=== PATIENT | female | born 1965 | race Caucasian/White ===

== ENCOUNTER → 2016-12-09 | Outpatient (CLI) | payer OTHER ==
[~2016-12-09] MED LIST: BACTRIM DS TAB1 EACH PO; CALCIUM +D & M1 EACH PO; CATAPRES-TTS 10.1 M2 TRANSDERM; CENTRUM SILVER1 EAC1 PO; CLONIDINE0.1 PO; COMBIVENT RESPIM4 GM IH; CYMBALTA; CYMBALTA60 MG PO; DEPAKOTE500 MG PO; DIFLUCAN200 MG PO; DIOVAN HCT 3201 EAC1 PO; DIOVAN160 MG PO; DIOVAN320 MG PO; DOXYCYCLINE 10100 MG PO; FLONASE 0.05%50 MCG NASAL; FOLIC ACID1 MG PO; HUMIRA40 MG/0.8 SQ; HUMIRA40 MG/0.8 SUBQ; HYDROCODON-ACE1 EAC1 PO; HYDROCODON-ACE1 EAC8 PO; HYZAAR 100-12.1 EACH PO; KEFLEX500 MG PO; LANTUS SC; LANTUS SUBQ; LEVEMIR SUBQ; LEXAPRO 10 MG T10 M1 PO; LEXAPRO20 MG PO; LIDODERM 5%1 PATC1 TOP; LIPITOR; LIPITOR80 MG PO; LOSARTAN-HCTZ1 EAC1 PO; METFORMIN; METFORMIN HCL500 M2 PO; METHOTREXATE 22.5 MG GT; METHOTREXATE 22.5 MG PO; MOBIC15 MG PO; NEURONTIN 300M300 M2 PO; NORCO 5-325 TA1 EACH PO; NORFLEX100 MG PO; NORTRIPTYLINE H10 M1 PO; NORVASC 5 MG TAB5 MG PO; NORVASC10 MG PO; NOVOLOG100 UNIT/1 SQ; NOVOLOG100 UNIT/1 SUBQ; PHENERGAN 25 MG25 M1 PO; PROTONIX40 M1 PO; SIMVASTATIN40 MG PO; SYMBICORT160 MCG/4. INH; TRAZODONE HCL50 MG PO; TRIAMTERENE-HC1 EAC1 PO; ULTRAM 50MG TAB50 MG PO; VISTARIL 25 MG25 M1 PO; VITAMIN D 5050000 I1 PO; VITAMIN D1000 UNI1 PO; VITAMIN D250000 UNIT PO; XANAX 0.25 MG0.25 MG PO
== END ==
LOC: CAT 12-07 11:03
DX: K80.80 Other cholelithiasis without obstruction (principal); R10.12 Left upper quadrant pain

== ENCOUNTER → 2016-12-21 | Outpatient (CLI) | payer OTHER | LOC: ULTRA 17:07 | DX: M79.661 Pain in right lower leg (principal) ==

== ENCOUNTER → 2017-01-27 | Outpatient (CLI) | payer OTHER | LOC: MRI 02:41 | DX: M21.832 Other specified acquired deformities of left forearm (principal); R26.0 Ataxic gait; R41.0 Disorientation, unspecified ==

== ENCOUNTER 2017-04-11 12:37 | Emergency (ER) | payer OTHER ==
[~2017-04-11] VITALS: Ht 177.8 cm; Wt 113.4 kg
[2017-04-11] MEDS ORDERED: BACTRIM DS TAB1 EACH PO (12:56)
[2017-04-11] MEDS ORDERED: HIBICLENS120 ML TP (12:56)
[2017-04-11] MEDS ORDERED: NORVASC5 MG PO (13:04)
[2017-04-11] MEDS ORDERED: NORTRIPTYLINE H10 M1 PO (13:05)
[2017-04-11] MEDS ORDERED: NORCO 5-325 TA1 EACH PO (13:10)
[2017-04-11 13:25] VITALS: BP 123/78
== END 2017-04-11 12:57 | disposition home or self-care (01) ==
LOC: ER 12:37
DX: L02.412 Cutaneous abscess of left axilla (principal); L02.811 Cutaneous abscess of head [any part, except face]; E11.40 Type 2 diabetes mellitus with diabetic neuropathy, unspecified; I10 Essential (primary) hypertension; E78.5 Hyperlipidemia, unspecified; M06.9 Rheumatoid arthritis, unspecified; Z79.4 Long term (current) use of insulin; F31.81 Bipolar II disorder; Z98.890 Other specified postprocedural states; Z88.8 Allergy status to other drugs, medicaments and biological substances

== ENCOUNTER 2017-04-23 16:44 | Emergency (ER) | payer OTHER ==
[~2017-04-23] VITALS: Ht 177.8 cm; Wt 111.1 kg
[~2017-04-23 16:44] MED LIST changes: +HIBICLENS120 ML TP; +NORVASC5 MG PO
[2017-04-23] MEDS ORDERED: IBUPROFEN 800800 M1 PO (19:17)
[2017-04-23 19:30] VITALS: BP 148/79
== END 2017-04-23 19:19 | disposition home or self-care (01) ==
LOC: ER 16:44
DX: S80.02XA Contusion of left knee, initial encounter (principal); S50.812A Abrasion of left forearm, initial encounter; E11.40 Type 2 diabetes mellitus with diabetic neuropathy, unspecified; I10 Essential (primary) hypertension; E78.5 Hyperlipidemia, unspecified; M06.9 Rheumatoid arthritis, unspecified; F31.9 Bipolar disorder, unspecified; K58.9 Irritable bowel syndrome, unspecified; Z90.89 Acquired absence of other organs; Z88.8 Allergy status to other drugs, medicaments and biological substances; Z79.4 Long term (current) use of insulin; W18.39XA Other fall on same level, initial encounter; Y93.89 Activity, other specified; Y92.89 Other specified places as the place of occurrence of the external cause; Y99.8 Other external cause status

== ENCOUNTER → 2017-10-19 | Outpatient (CLI) | payer OTHER ==
[~2017-10-19] MED LIST changes: +CARVEDILOL12.5 MG PO; +CIPROFLOXACIN500 M1 PO; +DIFLUCAN150 MG PO; +HYDROCODONE-AP1 EAC6 PO; +IBUPROFEN 800800 M1 PO; +LOSARTAN-HCTZ1 EAC3 PO; +ZOFRAN ODT4 MG PO
== END ==
LOC: RAD 15:47
DX: M25.561 Pain in right knee (principal); M25.562 Pain in left knee

== ENCOUNTER → 2017-11-27 | Outpatient (CLI) | payer OTHER | LOC: MRI 09:31 | DX: M25.572 Pain in left ankle and joints of left foot (principal); M79.89 Other specified soft tissue disorders ==

== ENCOUNTER 2017-12-28 12:55 | Emergency (ER) | payer OTHER ==
[~2017-12-28] VITALS: Ht 167.6 cm; Wt 99.8 kg
[~2017-12-28 12:55] MED LIST changes: -CARVEDILOL12.5 MG PO; -CIPROFLOXACIN500 M1 PO; -DIFLUCAN150 MG PO; -HYDROCODONE-AP1 EAC6 PO; -LOSARTAN-HCTZ1 EAC3 PO; -ZOFRAN ODT4 MG PO
[2017-12-28 13:16] LABS: URINE BILIRUBIN NEGATIVE (Negative); URINE BLOOD 1+ (Negative); URINE CLARITY CLEAR; URINE COLOR YELLOW; URINE GLUCOSE-RANDOM* 3+ (Negative); URINE KETONES 1+ (Negative); URINE LEUKOCYTES-REFLEX NEGATIVE (Negative); URINE PROTEIN (DIPSTICK) 2+ (Negative); URINE SPECIFIC GRAVITY 1.015 (1.005-1.035); URINE UROBILINOGEN 0.2 E.U./dl (0.2-1.0)
[2017-12-28 13:20] LABS: URINE NITRITE-REFLEX POSITIVE (Negative)
[2017-12-28 13:28] LABS: BACTERIA-REFLEX >30 Many /HPF (None Seen); HYALINE CASTS 0-3 Few /LPF (None Seen); SQUAMOUS 0-3 Few /LPF (0-3); URINE WBC-REFLEX 0-5 Rare /HPF (0-5)
[2017-12-28 13:29] LABS: CRYSTALS None Seen /LPF (None Seen); URINE RBC 0-2 Rare /HPF (0-2); WBC CLUMPS Few (None Seen)
[2017-12-28] MEDS ORDERED: CIPROFLOXACIN500 M1 PO (14:02)
[2017-12-28] MEDS ORDERED: ZOFRAN ODT4 MG PO (14:02)
[2017-12-28 14:24] VITALS: BP 195/101
== END 2017-12-28 14:28 | disposition home or self-care (01) ==
LOC: ER 12:55
PROVIDERS: Emergency Medicine
DX: N39.0 Urinary tract infection, site not specified (principal); I10 Essential (primary) hypertension; E78.5 Hyperlipidemia, unspecified; M19.90 Unspecified osteoarthritis, unspecified site; E11.9 Type 2 diabetes mellitus without complications; Z88.8 Allergy status to other drugs, medicaments and biological substances

== ENCOUNTER 2018-01-11 16:20 | Emergency (ER) | payer OTHER ==
[~2018-01-11] VITALS: Ht 177.8 cm; Wt 117.9 kg
[~2018-01-11 16:20] MED LIST changes: +CIPROFLOXACIN500 M1 PO; +ZOFRAN ODT4 MG PO
[2018-01-11] MEDS ORDERED: LOSARTAN-HCTZ1 EAC3 PO (16:58)
[2018-01-11] MEDS ORDERED: DOXYCYCLINE 10100 MG PO (18:28)
[2018-01-11] MEDS ORDERED: HYDROCODONE-AP1 EAC6 PO (18:28)
[2018-01-11] MEDS ORDERED: DIFLUCAN150 MG PO (18:28)
[2018-01-11 18:52] VITALS: BP 159/89
== END 2018-01-11 18:52 | disposition home or self-care (01) ==
LOC: ER 16:20
DX: L02.416 Cutaneous abscess of left lower limb (principal); B37.3 Candidiasis of vulva and vagina; I10 Essential (primary) hypertension; E78.5 Hyperlipidemia, unspecified; M19.90 Unspecified osteoarthritis, unspecified site; F31.9 Bipolar disorder, unspecified; E11.40 Type 2 diabetes mellitus with diabetic neuropathy, unspecified; Z88.8 Allergy status to other drugs, medicaments and biological substances

== ENCOUNTER 2018-01-26 15:59 | Emergency (ER) | payer OTHER ==
[~2018-01-26] VITALS: Ht 177.8 cm; Wt 108.0 kg
--- NOTE | ~2018-01-26 | EKG ---
[place] [address] [facility] [address] ELECTROCARDIOGRAM REPORT Name: MICHAEL VALLE Room #: REG [facility]#: [id number] Admission: 01/26/18 Attend Phys: Discharge: Date of : 65 Report #: [id number] THIS REPORT FOR: //name// [facility] ED Test Date: 2018-01-26 Test Time: 16:38:40 Pat Name: MICHAEL VALLE Department: Room: Gender: F Blood Splatter Analyst: : 1965 Requested By: Tico Horner Order Number: [id number] MD: Kevin Morrison Measurements Intervals [place] Rate: 94 P: 64 [place]: 161 QRS: 5 QRSD: 85 T: 62 QT: 352 QTc: 441 Interpretive Statements Sinus rhythm Abnormal R-wave progression, early transition Left ventricular hypertrophy Compared to ECG 02/23/2016 16:46:35 Left ventricular hypertrophy now present T-wave abnormality no longer present Possible ischemia no longer present Electronically Signed On 01-26-2018 18:18:55 CDT by Kevin Morrison [email or web address] <ELECTRONICALLY SIGNED> By: Kevin Morrison MD 01/26/18 1818 37 37 Kevin Morrison MD /EPI
[~2018-01-26 15:59] MED LIST changes: +DIFLUCAN150 MG PO; +HYDROCODONE-AP1 EAC6 PO; +LOSARTAN-HCTZ1 EAC3 PO
[2018-01-26 16:30] LABS: ABSOLUTE NEUTROPHILS 5.2 thou/uL (1.4-8.2); EOSINOPHILS 2.9 % (0.0-3.0); HEMATOCRIT 42.9 % (37.0-47.0); HEMOGLOBIN 14.6 gm/dL (12.0-15.0); LYMPHOCYTES 31.7 % (24.0-44.0); MCH 29.3 pg (26.0-34.0); MCHC 34.1 g/dL (28.0-37.0); MCV 85.9 fL (80.0-100.0); MONOCYTES 5.4 % (1.0-8.0); PLATELET COUNT 217 thou/uL (150-400); RDW 12.8 % (10.5-14.5); WBC 8.9 thou/uL (4.0-11.0)
[2018-01-26 16:46] LABS: ANION GAP 15 mmol/L (7-16); BUN 25 mg/dL (7-18); CALCIUM 9.5 mg/dL (8.5-10.1); CHLORIDE 90 mmol/L (98-107); CO2 22 mmol/L (21-32); CREATININE 1.3 mg/dL (0.6-1.0); POTASSIUM 4.6 mmol/L (3.5-5.1); SODIUM 127 mmol/L (136-145)
[2018-01-26 16:48] LABS: SGOT 13 U/L (15-37); SGPT 16 U/L (30-65); TOTAL BILIRUBIN 0.6 mg/dL (<0.1-1.0); TOTAL PROTEIN 7.8 g/dL (6.4-8.2); TROPONIN-I < 0.04 ng/mL (<0.06)
[2018-01-26 16:50] LABS: GLUCOSE 627 mg/dL (74-106)
[2018-01-26 18:07] LABS: URINE BILIRUBIN NEGATIVE (Negative); URINE BLOOD TRACE (Negative); URINE CLARITY CLEAR; URINE COLOR YELLOW; URINE GLUCOSE-RANDOM* 3+ (Negative); URINE KETONES 2+ (Negative); URINE LEUKOCYTES-REFLEX NEGATIVE (Negative); URINE NITRITE-REFLEX NEGATIVE (Negative); URINE PROTEIN (DIPSTICK) TRACE (Negative); URINE UROBILINOGEN 0.2 E.U./dl (0.2-1.0)
[2018-01-26 19:37] VITALS: BP 150/76
== END 2018-01-26 19:38 | disposition home or self-care (01) ==
LOC: ER 15:59
PROVIDERS: Physician Assistant
DX: E11.65 Type 2 diabetes mellitus with hyperglycemia (principal); M79.7 Fibromyalgia; E87.1 Hypo-osmolality and hyponatremia; I10 Essential (primary) hypertension; E78.5 Hyperlipidemia, unspecified; M19.90 Unspecified osteoarthritis, unspecified site; F31.9 Bipolar disorder, unspecified; E11.40 Type 2 diabetes mellitus with diabetic neuropathy, unspecified; Z88.8 Allergy status to other drugs, medicaments and biological substances

== ENCOUNTER → 2018-02-01 | Outpatient (CLI) | payer OTHER ==
[~2018-02-01] VITALS: Ht 177.8 cm; Wt 114.3 kg
[2018-02-01 14:14] VITALS: BP 186/97
[2018-02-01 16:29] LABS: ALBUMIN 2.8 g/dL (3.4-5.0); CALCIUM 9.1 mg/dL (8.5-10.1); CREATININE 0.8 mg/dL (0.6-1.0); POTASSIUM 4.1 mmol/L (3.5-5.1); TOTAL BILIRUBIN 0.3 mg/dL (<0.1-1.0); TOTAL PROTEIN 6.8 g/dL (6.4-8.2)
[2018-02-02 06:13] LABS: GLYCOHEMOGLOBIN (HGB A1C) 16.5 % (4.8-5.6)
== END ==
LOC: SEN 09:23
PROVIDERS: Nurse Practitioner Family
DX: E11.8 Type 2 diabetes mellitus with unspecified complications (principal); R29.818 Other symptoms and signs involving the nervous system; I10 Essential (primary) hypertension; E87.1 Hypo-osmolality and hyponatremia

== ENCOUNTER → 2018-02-08 | Outpatient (CLI) | payer OTHER ==
[2018-02-08 14:00] VITALS: BP 164/83
== END ==
LOC: SEN 07:41
DX: F31.9 Bipolar disorder, unspecified (principal); I10 Essential (primary) hypertension; E78.5 Hyperlipidemia, unspecified; E11.9 Type 2 diabetes mellitus without complications; Z88.8 Allergy status to other drugs, medicaments and biological substances

== ENCOUNTER → 2018-03-08 | Outpatient (CLI) | payer OTHER ==
[2018-03-08 13:36] VITALS: BP 157/70
== END ==
LOC: SEN 09:07
DX: E11.9 Type 2 diabetes mellitus without complications (principal); F41.9 Anxiety disorder, unspecified; E78.5 Hyperlipidemia, unspecified

== ENCOUNTER → 2018-06-06 | Outpatient (CLI) | payer OTHER ==
[~2018-06-06] MED LIST changes: +CARVEDILOL12.5 MG PO
--- NOTE | ~2018-06-06 | 2DMMODE ---
[facility] [place] [employer] [place] [address] 2 D/M-MODE ECHOCARDIOGRAM Name: MICHAEL VALLE Room #: REG CL [facility]#: [id number] Admission: 06/06/18 Attend Phys: Fadi Palomino, Discharge: Date of : 65 Date of Service: 06/06/18 1549 Report #: [id number] THIS REPORT FOR: //name// APPROVED REPORT Study performed: 06/06/2018 14:53:10 EXAM: Comprehensive 2D, Doppler, and color-flow Echocardiogram Patient Location: Out-Patient Status: routine BSA: 2.42 HR: 85 bpm BP: 205/105 mmHg Rhythm: NSR Other Information Study Quality: Adequate Technically limited study due to body habitus. Indications Dysnea on exertion. HX: DM, HTN, HLP 2D Dimensions RVDd: 38.08 mm IVSd: 11.73 (7-11mm) LVOT Diam: 21.30 (18-24mm) LVDd: 53.51 mm PWd: 9.64 (7-11mm) Ascending Ao: 38.26 (22-36mm) LVDs: 32.37 (25-40mm) Aortic Root: 35.95 mm Volumes Left Atrial Volume (Systole) Single Plane 4CH: 53.54 mL Single Plane 2CH: 52.75 mL Aortic Valve AoV Peak Harpreet.: 1.27 m/s AO Peak Gr.: 6.45 mmHg LVOT Max P.29 mmHg LVOT Max V: 1.04 m/s GORDON Vmax: 2.90 cm2 Mitral Valve E/A Ratio: 1.2 MV Decel. Time: 190.98 ms MV E Max Harpreet.: 1.07 m/s [facility] [address] [place] [address] 2 D/M-MODE ECHOCARDIOGRAM Name: MICHAEL VALLE Room #: REG [facility].#: [id number] Admission: 06/06/18 Attend Phys: Fadi Palomino, Discharge: Date of : 65 Date of Service: 06/06/18 1549 Report #: [id number] MV A Harpreet.: 0.91 m/s MV PHT: 55.38 ms IVRT: 73.82 ms Pulmonary Valve PV Peak Harpreet.: 1.12 m/s PV Peak Gr.: 5.03 mmHg Pulmonary Vein P Vein S: 0.56 m/s P Vein D: 0.44 m/s P Vein S/D Ratio: 1.27 Tricuspid Valve RAP Estimate: 5.00 mmHg Left Ventricle The left ventricle is normal size. There is normal LV segmental wall motion. Mild septal hypertrophy is present. Left ventricular systolic function is normal. LVEF is 65-70%. Grade II - pseudonormal filling dynamics. Right Ventricle The right ventricle is normal size. The right ventricular systolic function is normal. Atria The left atrium size is normal. The right atrium size is normal. Aortic Valve The aortic valve is normal in structure. No aortic regurgitation is present. There is no aortic valvular stenosis. Mitral Valve The mitral valve is normal in structure. There is no mitral valve regurgitation noted. No evidence of mitral valve stenosis. Tricuspid Valve The tricuspid valve is normal in structure. There is no tricuspid valve regurgitation noted. Unable to assess PA pressure. Pulmonic Valve The pulmonary valve is normal in structure. There is no pulmonic valvular regurgitation. [employer] [facility] [address] [place] [address] 2 D/M-MODE ECHOCARDIOGRAM Name: PADMINISINDYPRISCILAMICHAEL ANN Room #: REG [facility].#: [id number] Admission: 06/06/18 Attend Phys: Fadi Palomino, Discharge: Date of : 65 Date of Service: 06/06/18 1549 Report #: [id number] The aortic root is normal in size. The ascending aorta is normal in size. IVC is normal in size and collapses >50% with inspiration. Pericardium There is no pericardial effusion. <Conclusion> The left ventricle is normal size. LVEF is 65-70%. The aortic valve is normal in structure. The mitral valve is normal in structure. The tricuspid valve is normal in structure. There is no tricuspid valve regurgitation noted. Unable to assess PA pressure. The pulmonary valve is normal in structure. There is no pericardial effusion. <ELECTRONICALLY SIGNED> By: Will Munoz MD 06/06/18 1549 1549 1549 Will Munoz MD /INF
== END ==
LOC: CV 07:59
DX: R06.09 Other forms of dyspnea (principal); R60.0 Localized edema; I10 Essential (primary) hypertension; E11.9 Type 2 diabetes mellitus without complications; E78.5 Hyperlipidemia, unspecified

== ENCOUNTER → 2018-06-28 | Outpatient (CLI) | payer OTHER | LOC: SEN 08:19 | DX: Z09 Encounter for follow-up examination after completed treatment for conditions other than malignant neoplasm (principal); R60.0 Localized edema; I10 Essential (primary) hypertension; E11.40 Type 2 diabetes mellitus with diabetic neuropathy, unspecified; E78.5 Hyperlipidemia, unspecified; M06.9 Rheumatoid arthritis, unspecified ==

== ENCOUNTER → 2018-07-26 | Outpatient (CLI) | payer OTHER | LOC: SEN 12:41 | DX: Z09 Encounter for follow-up examination after completed treatment for conditions other than malignant neoplasm (principal); E11.42 Type 2 diabetes mellitus with diabetic polyneuropathy; F41.9 Anxiety disorder, unspecified; R60.0 Localized edema; Z79.4 Long term (current) use of insulin; Z79.899 Other long term (current) drug therapy ==

== ENCOUNTER → 2018-08-16 | Outpatient (CLI) | payer OTHER | LOC: SEN 15:30 | DX: Z09 Encounter for follow-up examination after completed treatment for conditions other than malignant neoplasm (principal); E11.42 Type 2 diabetes mellitus with diabetic polyneuropathy; R60.0 Localized edema; Z79.4 Long term (current) use of insulin ==

== ENCOUNTER 2018-09-13 20:48 | Emergency (ER) | payer OTHER ==
[~2018-09-13] VITALS: Ht 177.8 cm; Wt 108.0 kg
[2018-09-13 21:25] LABS: HEMATOCRIT 37.5 % (37.0-47.0); HEMOGLOBIN 12.9 gm/dL (12.0-15.0); MCH 29.8 pg (26.0-34.0); MCHC 34.4 g/dL (28.0-37.0); MCV 86.7 fL (80.0-100.0); RBC 4.33 mil/uL (4.20-5.00); RDW 14.5 % (10.5-14.5); WBC 11.5 thou/uL (4.0-11.0)
[2018-09-13 21:35] LABS: ANION GAP 7 mmol/L (7-16); BUN 23 mg/dL (7-18); CALCIUM 8.9 mg/dL (8.5-10.1); CHLORIDE 102 mmol/L (98-107); CO2 27 mmol/L (21-32); CREATININE 1.3 mg/dL (0.6-1.0); GLUCOSE 238 mg/dL (74-106); SODIUM 136 mmol/L (136-145)
[2018-09-13 21:44] LABS: ALBUMIN 2.9 g/dL (3.4-5.0); SGOT 14 U/L (15-37); SGPT 21 U/L (30-65); TOTAL BILIRUBIN 0.4 mg/dL (<0.1-1.0); TOTAL PROTEIN 7.4 g/dL (6.4-8.2); TROPONIN-I <0.06 ng/mL (<0.06)
[2018-09-13 23:52] LABS: URINE CLARITY SL. CLOUDY; URINE COLOR YELLOW
[2018-09-13 23:54] LABS: URINE BILIRUBIN NEGATIVE (Negative); URINE BLOOD 1+ (Negative); URINE GLUCOSE-RANDOM* 1+ (Negative); URINE KETONES NEGATIVE (Negative); URINE LEUKOCYTES-REFLEX 1+ (Negative); URINE NITRITE-REFLEX POSITIVE (Negative); URINE PROTEIN (DIPSTICK) 2+ (Negative); URINE SPECIFIC GRAVITY >= 1.030 (1.005-1.035); URINE UROBILINOGEN 0.2 E.U./dl (0.2-1.0)
[2018-09-13 23:57] LABS: BACTERIA-REFLEX >30 Many /HPF (None Seen); CASTS None Seen /LPF (None Seen); CRYSTALS None Seen /LPF (None Seen); MUCUS None Seen strn/LPF (None Seen); SQUAMOUS None Seen /LPF (0-3); URINE RBC 0-2 Rare /HPF (0-2)
[2018-09-14] MEDS ORDERED: LOPERAMIDE 2 MG2 M1 PO (00:11)
[2018-09-14] MEDS ORDERED: CIPROFLOXACIN500 M1 PO (00:11)
[2018-09-14 00:30] VITALS: BP 134/74
== END 2018-09-14 00:30 | disposition home or self-care (01) ==
LOC: ER 20:48
PROVIDERS: Student in an Organized Health Care Education/Training Program
DX: R19.7 Diarrhea, unspecified (principal); N39.0 Urinary tract infection, site not specified; I10 Essential (primary) hypertension; E78.5 Hyperlipidemia, unspecified; M19.90 Unspecified osteoarthritis, unspecified site; E11.40 Type 2 diabetes mellitus with diabetic neuropathy, unspecified; Z88.8 Allergy status to other drugs, medicaments and biological substances

== ENCOUNTER 2018-09-24 11:43 | Emergency (ER) | payer OTHER ==
[~2018-09-24] VITALS: Ht 177.8 cm; Wt 123.8 kg
[~2018-09-24 11:43] MED LIST changes: +LOPERAMIDE 2 MG2 M1 PO
[2018-09-24 13:03] LABS: BASOPHILS 0.7 % (0.0-2.0); EOSINOPHILS 11.5 % (0.0-3.0); HEMATOCRIT 35.6 % (37.0-47.0); HEMOGLOBIN 12.1 gm/dL (12.0-15.0); LYMPHOCYTES 45.1 % (24.0-44.0); MCH 29.9 pg (26.0-34.0); MCHC 34.1 g/dL (28.0-37.0); MCV 87.6 fL (80.0-100.0); MONOCYTES 6.4 % (1.0-8.0); PLATELET COUNT 201 thou/uL (150-400); POLYS 36.3 % (36.0-66.0); RBC 4.06 mil/uL (4.20-5.00); RDW 14.2 % (10.5-14.5); WBC 8.3 thou/uL (4.0-11.0)
[2018-09-24 13:11] LABS: ANION GAP 6 mmol/L (7-16); BUN 25 mg/dL (7-18); CALCIUM 9.3 mg/dL (8.5-10.1); CHLORIDE 103 mmol/L (98-107); CO2 30 mmol/L (21-32); CREATININE 1.2 mg/dL (0.6-1.0); GLUCOSE 199 mg/dL (74-106); POTASSIUM 4.3 mmol/L (3.5-5.1); SODIUM 139 mmol/L (136-145)
[2018-09-24 13:19] LABS: ALBUMIN 3.1 g/dL (3.4-5.0); MAGNESIUM 1.8 mg/dL (1.8-2.4); SGOT 17 U/L (15-37); SGPT 26 U/L (30-65); TOTAL BILIRUBIN 0.3 mg/dL (<0.1-1.0); TOTAL PROTEIN 7.7 g/dL (6.4-8.2); TROPONIN-I <0.06 ng/mL (<0.06)
[2018-09-24 13:31] LABS: APTT 25.9 Seconds (24.5-32.8); D-DIMER 0.26 ug/mLFEU (0.19-0.50); PROTIME 10.1 Seconds (9.3-11.4)
--- NOTE | 2018-09-24 13:40 | EKG ---
[place] [address] [facility] [place] [address] ELECTROCARDIOGRAM REPORT Name: MICHAEL VALLE ANN [id number] Admission: 09/24/18 Attend Phys: Discharge: Date of : 65 Report #: [id number] THIS REPORT FOR: //name// [facility] ED Test Date: 2018-09-24 Test Time: 12:31:30 Pat Name: MICHAEL VALLE Department: Room: Gender: F Steam Press Operator: ROZINA : 1965 Requested By: Uziel Borden Order Number: [id number] MD: Kevin Morrison Measurements Intervals [place] Rate: 77 P: -8 HI: 162 QRS: 15 QRSD: 91 T: 71 QT: 383 QTc: 434 Interpretive Statements Sinus rhythm Probable left atrial enlargement Left ventricular hypertrophy Borderline T abnormalities, lateral leads Compared to ECG 05/03/2018 15:15:51 Early repolarization no longer present Electronically Signed On 09-24-2018 13:40:20 [employer] by Kevin Morrison [email or web address] <ELECTRONICALLY SIGNED> By: Kevin Morrison MD 09/24/18 1340 1231 1231 Kevin Morrison MD /JOAQUINA
[2018-09-24] MEDS ORDERED: PREDNISONE 20 M20 MG PO (13:41)
[2018-09-24] MEDS ORDERED: ACETAMINOPHEN-1 EAC1 PO (13:41)
[2018-09-24 14:05] VITALS: BP 174/67
== END 2018-09-24 14:06 | disposition home or self-care (01) ==
LOC: ER 11:43
PROVIDERS: Emergency Medicine
DX: M94.0 Chondrocostal junction syndrome [Tietze] (principal); E11.42 Type 2 diabetes mellitus with diabetic polyneuropathy; I10 Essential (primary) hypertension; E78.5 Hyperlipidemia, unspecified; M19.90 Unspecified osteoarthritis, unspecified site; F31.9 Bipolar disorder, unspecified; Z88.6 Allergy status to analgesic agent; Z88.8 Allergy status to other drugs, medicaments and biological substances

== ENCOUNTER → 2018-10-24 | Outpatient (CLI) | payer OTHER ==
[~2018-10-24] MED LIST changes: +ACETAMINOPHEN-1 EAC1 PO; +PREDNISONE 20 M20 MG PO
== END ==
LOC: NUC 08:58
DX: R07.81 Pleurodynia (principal); I10 Essential (primary) hypertension; M06.9 Rheumatoid arthritis, unspecified; E11.40 Type 2 diabetes mellitus with diabetic neuropathy, unspecified

== ENCOUNTER → 2019-02-21 | Outpatient (CLI) | payer OTHER ==
[~2019-02-21] MED LIST changes: +KEFLEX500 M1 PO
== END ==
LOC: SEN 12:36
DX: Z09 Encounter for follow-up examination after completed treatment for conditions other than malignant neoplasm (principal); I11.0 Hypertensive heart disease with heart failure; I50.9 Heart failure, unspecified; I25.10 Atherosclerotic heart disease of native coronary artery without angina pectoris; F32.9 Major depressive disorder, single episode, unspecified; E11.40 Type 2 diabetes mellitus with diabetic neuropathy, unspecified; E78.5 Hyperlipidemia, unspecified; M06.9 Rheumatoid arthritis, unspecified; Z95.1 Presence of aortocoronary bypass graft

== ENCOUNTER 2019-03-06 16:38 | Emergency (ER) | payer OTHER ==
[~2019-03-06] VITALS: Ht 177.8 cm; Wt 122.9 kg
[~2019-03-06 16:38] MED LIST changes: -KEFLEX500 M1 PO
[2019-03-06 17:20] LABS: ABSOLUTE NEUTROPHILS 3.4 thou/uL (1.4-8.2); BASOPHILS 1.4 % (0.0-2.0); EOSINOPHILS 6.2 % (0.0-3.0); HEMATOCRIT 32.2 % (37.0-47.0); HEMOGLOBIN 10.7 gm/dL (12.0-15.0); LYMPHOCYTES 42.4 % (24.0-44.0); MCH 29.6 pg (26.0-34.0); MCHC 33.1 g/dL (28.0-37.0); MCV 89.2 fL (80.0-100.0); MONOCYTES 4.8 % (1.0-8.0); PLATELET COUNT 224 thou/uL (150-400); POLYS 45.2 % (36.0-66.0); RBC 3.61 mil/uL (4.20-5.00); RDW 17.2 % (10.5-14.5); WBC 7.5 thou/uL (4.0-11.0)
[2019-03-06 17:27] LABS: CALCIUM 9.2 mg/dL (8.5-10.1); CREATININE 1.3 mg/dL (0.6-1.0); POTASSIUM 4.9 mmol/L (3.5-5.1)
[2019-03-06 17:35] LABS: ALBUMIN 3.1 g/dL (3.4-5.0); TOTAL BILIRUBIN 0.3 mg/dL (<0.1-1.0)
[2019-03-06 18:12] VITALS: BP 153/82
== END 2019-03-06 18:13 | disposition home or self-care (01) ==
LOC: ER 16:38
PROVIDERS: Nurse Practitioner Family
DX: G57.31 Lesion of lateral popliteal nerve, right lower limb (principal); M21.371 Foot drop, right foot; E11.40 Type 2 diabetes mellitus with diabetic neuropathy, unspecified; I10 Essential (primary) hypertension; E78.5 Hyperlipidemia, unspecified; M06.9 Rheumatoid arthritis, unspecified; K58.9 Irritable bowel syndrome, unspecified; Z88.8 Allergy status to other drugs, medicaments and biological substances; Z79.4 Long term (current) use of insulin

== ENCOUNTER → 2019-03-07 | Outpatient (CLI) | payer OTHER | LOC: SEN 12:32 | DX: Z09 Encounter for follow-up examination after completed treatment for conditions other than malignant neoplasm (principal); I11.0 Hypertensive heart disease with heart failure; I50.9 Heart failure, unspecified; I25.10 Atherosclerotic heart disease of native coronary artery without angina pectoris; E11.40 Type 2 diabetes mellitus with diabetic neuropathy, unspecified; E78.5 Hyperlipidemia, unspecified; M06.9 Rheumatoid arthritis, unspecified; G25.0 Essential tremor; Z95.1 Presence of aortocoronary bypass graft; F32.9 Major depressive disorder, single episode, unspecified ==

== ENCOUNTER 2019-03-09 13:18 | Emergency (ER) | payer OTHER ==
[~2019-03-09] VITALS: Ht 177.8 cm; Wt 122.9 kg
[2019-03-09 15:14] VITALS: BP 109/55
== END 2019-03-09 15:15 | disposition home or self-care (01) ==
LOC: ER 13:18
DX: S63.591A Other specified sprain of right wrist, initial encounter (principal); E11.9 Type 2 diabetes mellitus without complications; I10 Essential (primary) hypertension; E78.5 Hyperlipidemia, unspecified; M06.9 Rheumatoid arthritis, unspecified; F31.9 Bipolar disorder, unspecified; E11.40 Type 2 diabetes mellitus with diabetic neuropathy, unspecified; K58.9 Irritable bowel syndrome, unspecified; Z90.89 Acquired absence of other organs; Z79.4 Long term (current) use of insulin; Z88.8 Allergy status to other drugs, medicaments and biological substances; W18.39XA Other fall on same level, initial encounter; Y92.89 Other specified places as the place of occurrence of the external cause; Y93.89 Activity, other specified; Y99.8 Other external cause status

== ENCOUNTER → 2019-04-04 | Outpatient (CLI) | payer OTHER | LOC: SEN 12:51 | DX: Z09 Encounter for follow-up examination after completed treatment for conditions other than malignant neoplasm (principal); E11.9 Type 2 diabetes mellitus without complications; I25.10 Atherosclerotic heart disease of native coronary artery without angina pectoris; I10 Essential (primary) hypertension ==

== ENCOUNTER → 2019-05-02 | Outpatient (CLI) | payer OTHER ==
[~2019-05-02] MED LIST changes: +KEFLEX500 M1 PO
== END ==
LOC: SEN 02:00
DX: R32 Unspecified urinary incontinence (principal); I25.10 Atherosclerotic heart disease of native coronary artery without angina pectoris; E11.9 Type 2 diabetes mellitus without complications; I10 Essential (primary) hypertension; F41.9 Anxiety disorder, unspecified; Z95.1 Presence of aortocoronary bypass graft; Z79.4 Long term (current) use of insulin

== ENCOUNTER 2019-05-14 16:38 | Emergency (ER) | payer OTHER ==
[~2019-05-14] VITALS: Ht 177.8 cm; Wt 118.8 kg
[~2019-05-14 16:38] MED LIST changes: -KEFLEX500 M1 PO
[2019-05-14 18:13] VITALS: BP 138/69
== END 2019-05-14 18:14 | disposition home or self-care (01) ==
LOC: ER 16:38
DX: M79.671 Pain in right foot (principal); E11.40 Type 2 diabetes mellitus with diabetic neuropathy, unspecified; I10 Essential (primary) hypertension; E78.5 Hyperlipidemia, unspecified; F31.9 Bipolar disorder, unspecified; Z79.4 Long term (current) use of insulin; Z90.89 Acquired absence of other organs; Z98.890 Other specified postprocedural states; Z88.8 Allergy status to other drugs, medicaments and biological substances; Z88.1 Allergy status to other antibiotic agents

== ENCOUNTER 2019-05-16 18:20 | Emergency (ER) | payer OTHER ==
[~2019-05-16] VITALS: Ht 177.8 cm; Wt 122.5 kg
[2019-05-16 19:20] LABS: ABSOLUTE NEUTROPHILS 6.6 thou/uL (1.4-8.2); BASOPHILS 0.5 % (0.0-2.0); EOSINOPHILS 3.1 % (0.0-3.0); HEMATOCRIT 29.9 % (37.0-47.0); HEMOGLOBIN 9.9 gm/dL (12.0-15.0); LYMPHOCYTES 24.8 % (24.0-44.0); MCH 30.6 pg (26.0-34.0); MCHC 33.2 g/dL (28.0-37.0); MCV 92.1 fL (80.0-100.0); MONOCYTES 3.6 % (1.0-8.0); PLATELET COUNT 237 thou/uL (150-400); RBC 3.24 mil/uL (4.20-5.00); RDW 16.6 % (10.5-14.5); WBC 9.7 thou/uL (4.0-11.0)
[2019-05-16 19:35] LABS: ANION GAP 5 mmol/L (7-16); BUN 29 mg/dL (7-18); CALCIUM 8.3 mg/dL (8.5-10.1); CHLORIDE 105 mmol/L (98-107); CO2 27 mmol/L (21-32); CREATININE 1.4 mg/dL (0.6-1.0); GLUCOSE 78 mg/dL (74-106); POTASSIUM 4.4 mmol/L (3.5-5.1); SODIUM 137 mmol/L (136-145)
[2019-05-16 19:40] LABS: ALBUMIN 2.8 g/dL (3.4-5.0); DIRECT BILIRUBIN < 0.1 mg/dL (<0.1-0.3); SGOT 17 U/L (15-37); SGPT 14 U/L (30-65); TOTAL BILIRUBIN 0.3 mg/dL (<0.1-1.0); TOTAL PROTEIN 6.9 g/dL (6.4-8.2)
[2019-05-16 20:52] LABS: URINE BILIRUBIN NEGATIVE (Negative); URINE BLOOD 2+ (Negative); URINE CLARITY CLOUDY; URINE COLOR YELLOW; URINE GLUCOSE-RANDOM* NEGATIVE (Negative); URINE KETONES TRACE (Negative); URINE PROTEIN (DIPSTICK) 3+ (Negative); URINE SPECIFIC GRAVITY >= 1.030 (1.005-1.035); URINE UROBILINOGEN 0.2 E.U./dl (0.2-1.0)
[2019-05-16 20:57] LABS: URINE LEUKOCYTES-REFLEX 2+ (Negative); URINE NITRITE-REFLEX POSITIVE (Negative)
[2019-05-16 21:06] LABS: URINE WBC-REFLEX >25 Many /HPF (0-5)
[2019-05-16 21:07] LABS: CASTS None Seen /LPF (None Seen); CRYSTALS None Seen /LPF (None Seen); SQUAMOUS 4-10 Moderate /LPF (0-3)
[2019-05-16 21:08] LABS: BACTERIA-REFLEX >30 Many /HPF (None Seen); URINE RBC 0-2 Rare /HPF (0-2)
[2019-05-16] MEDS ORDERED: KEFLEX500 M1 PO (22:23)
[2019-05-16 22:44] VITALS: BP 145/71
== END 2019-05-16 22:50 | disposition home or self-care (01) ==
LOC: ER 18:20
PROVIDERS: Emergency Medicine
DX: N39.0 Urinary tract infection, site not specified (principal); R26.89 Other abnormalities of gait and mobility; E11.9 Type 2 diabetes mellitus without complications; I10 Essential (primary) hypertension; E78.5 Hyperlipidemia, unspecified; M06.9 Rheumatoid arthritis, unspecified; K58.9 Irritable bowel syndrome, unspecified; Z88.8 Allergy status to other drugs, medicaments and biological substances; Z90.89 Acquired absence of other organs; Z79.4 Long term (current) use of insulin

== ENCOUNTER 2019-05-20 13:41 | Emergency (ER) | payer OTHER ==
[~2019-05-20] VITALS: Ht 167.6 cm; Wt 101.2 kg
[~2019-05-20 13:41] MED LIST changes: +KEFLEX500 M1 PO
[2019-05-20 13:42] VITALS: BP 199/90
== END 2019-05-20 14:20 | disposition home or self-care (01) ==
LOC: ER 13:41
DX: S82.61XA Displaced fracture of lateral malleolus of right fibula, initial encounter for closed fracture (principal); S90.31XA Contusion of right foot, initial encounter; I10 Essential (primary) hypertension; F31.9 Bipolar disorder, unspecified; E11.40 Type 2 diabetes mellitus with diabetic neuropathy, unspecified; M06.9 Rheumatoid arthritis, unspecified; K58.9 Irritable bowel syndrome, unspecified; Z90.49 Acquired absence of other specified parts of digestive tract; Z88.8 Allergy status to other drugs, medicaments and biological substances; W18.30XA Fall on same level, unspecified, initial encounter; Y93.89 Activity, other specified; Y92.89 Other specified places as the place of occurrence of the external cause; Y99.8 Other external cause status

== ENCOUNTER → 2019-06-13 | Outpatient (CLI) | payer OTHER ==
[~2019-06-13] MED LIST changes: +ASA81BEC PO; +CATAPRES-TTS 21 EACH TRANSDERM; +CEFDINIR300 MG PO; +CYMBALTA30 MG PO; +DEPAKOTE ER500 M1 PO; +LIPITOR 40 MG T40 M1 PO; +MOBIC7.5 MG PO; +OXYBUTYNIN 5 MG5 M2 PO; +ROSUVASTATIN CA40 MG PO; +TOUJEO SOL300 UNIT/1 SUBQ
== END ==
LOC: SEN 11:43
DX: M62.838 Other muscle spasm (principal); E11.22 Type 2 diabetes mellitus with diabetic chronic kidney disease; I12.9 Hypertensive chronic kidney disease with stage 1 through stage 4 chronic kidney disease, or unspecified chronic kidney disease; N18.3 Chronic kidney disease, stage 3 (moderate); R30.0 Dysuria; E78.5 Hyperlipidemia, unspecified; E11.40 Type 2 diabetes mellitus with diabetic neuropathy, unspecified; Z79.899 Other long term (current) drug therapy

== ENCOUNTER 2019-06-29 17:55 | Inpatient (IN) | payer OTHER ==
[~2019-06-29] VITALS: Ht 177.8 cm; Wt 120.7 kg
[~2019-06-29 17:55] MED LIST changes: -ASA81BEC PO; -CATAPRES-TTS 21 EACH TRANSDERM; -CEFDINIR300 MG PO; -CYMBALTA30 MG PO; -DEPAKOTE ER500 M1 PO; -LIPITOR 40 MG T40 M1 PO; -MOBIC7.5 MG PO; -OXYBUTYNIN 5 MG5 M2 PO; -ROSUVASTATIN CA40 MG PO; -TOUJEO SOL300 UNIT/1 SUBQ
[2019-06-29 18:39] VITALS: BP 114/60
[2019-06-29] MEDS ORDERED: OXYBUTYNIN 5 MG5 M2 PO (19:18)
[2019-06-29] MEDS ORDERED: LIPITOR 40 MG T40 M1 PO (19:18)
[2019-06-29] MEDS ORDERED: CATAPRES-TTS 21 EACH TRANSDERM (19:18)
[2019-06-29] MEDS ORDERED: NORVASC5 MG PO (19:18)
[2019-06-29 19:57] LABS: ABSOLUTE NEUTROPHILS 4.4 thou/uL (1.4-8.2); BASOPHILS 0.9 % (0.0-2.0); EOSINOPHILS 7.2 % (0.0-3.0); HEMOGLOBIN 12.4 gm/dL (12.0-15.0); LYMPHOCYTES 41.8 % (24.0-44.0); MCH 30.5 pg (26.0-34.0); MCHC 33.5 g/dL (28.0-37.0); MCV 91.2 fL (80.0-100.0); MONOCYTES 8.3 % (1.0-8.0); PLATELET COUNT 309 thou/uL (150-400); POLYS 41.8 % (36.0-66.0); RBC 4.06 mil/uL (4.20-5.00); WBC 10.6 thou/uL (4.0-11.0)
[2019-06-29 20:04] LABS: ANION GAP 10 mmol/L (7-16); BUN 38 mg/dL (7-18); CALCIUM 8.8 mg/dL (8.5-10.1); CHLORIDE 95 mmol/L (98-107); CO2 26 mmol/L (21-32); GLUCOSE 273 mg/dL (74-106); POTASSIUM 4.3 mmol/L (3.5-5.1); SODIUM 131 mmol/L (136-145)
[2019-06-29 20:12] LABS: ALBUMIN 3.2 g/dL (3.4-5.0); DIRECT BILIRUBIN < 0.1 mg/dL (<0.1-0.3); LIPASE 60 U/L (73-393); MAGNESIUM 2.1 mg/dL (1.8-2.4); SGOT 23 U/L (15-37); SGPT 14 U/L (30-65); TOTAL BILIRUBIN 0.3 mg/dL (<0.1-1.0); TOTAL PROTEIN 7.7 g/dL (6.4-8.2)
[2019-06-29 20:54] LABS: URINE BILIRUBIN NEGATIVE (Negative); URINE BLOOD TRACE (Negative); URINE CLARITY CLOUDY; URINE COLOR YELLOW; URINE GLUCOSE-RANDOM* NEGATIVE (Negative); URINE KETONES 1+ (Negative); URINE NITRITE-REFLEX NEGATIVE (Negative); URINE PROTEIN (DIPSTICK) 2+ (Negative); URINE SPECIFIC GRAVITY 1.025 (1.005-1.035); URINE UROBILINOGEN 0.2 E.U./dl (0.2-1.0)
[2019-06-29 20:56] LABS: URINE LEUKOCYTES-REFLEX 3+ (Negative)
[2019-06-29 21:15] LABS: BACTERIA-REFLEX >30 Many /HPF (None Seen); CASTS None Seen /LPF (None Seen); CRYSTALS None Seen /LPF (None Seen); SQUAMOUS None Seen /LPF (0-3); URINE RBC 0-2 Rare /HPF (0-2); URINE WBC-REFLEX >25 Many /HPF (0-5)
[2019-06-29 22:30] VITALS: BP 156/64
[2019-06-29 22:53] VITALS: BP 177/82
--- NOTE | 2019-06-29 23:20 | NUR ---
Pt. arrived to the unit from the emergency room accompanied by staff. She is alert and oriented. Admisssion assessment and history is completed. Pt. offers no complaints. Bed alarm is on.
[2019-06-29] MEDS ORDERED: DEPAKOTE ER500 M1 PO (23:35)
[2019-06-29] MEDS ORDERED: CYMBALTA30 MG PO (23:36)
[2019-06-29] MEDS ORDERED: TOUJEO SOL300 UNIT/1 SUBQ (23:37)
[2019-06-29] MEDS ORDERED: ASA81BEC PO (23:37)
[2019-06-29] MEDS ORDERED: MOBIC7.5 MG PO (23:42)
[2019-06-29] MEDS ORDERED: ROSUVASTATIN CA40 MG PO (23:42)
[2019-06-30] VITALS (7 sets, daily range): BP systolic 126–173; BP diastolic 66–86
--- NOTE | 2019-06-30 04:18 | NUR ---
Pt. rested quietly during the night when checked on during frequent rounds. She offers no complaints. Assisted up to the bathroom with stand by assist- ramanae. Bed alarm is on.
--- NOTE | 2019-06-30 15:17 | NUR ---
PT ALERT AND ORIENTED TIMES FOUR. VSS, 93%RA, IVF INFUSING PER ORDER. PT DENIES PAIN/SOA. PT TOLERATES MEDS AND MEALS. PT UP AB DOT. PT FRIEND AT BEDSIDE. PT PROGRESSING TOWRADS POC GOALS.
--- NOTE | 2019-07-01 04:10 | NUR ---
ASSUMED CARE OF PT @1999 PT A&OX4, DENIES PAIN UP WITH SBA TO THE BATHROOM. IV INTACT AND FLUIDS INFUSING. INSULIN ADM FOR TONIGHT. FALL PREC IN PLACE AND CALL LIGHT WITHIN REACH WILL CONT WITH POC TILL EOS.
[2019-07-01 05:45] VITALS: BP 140/65
[2019-07-01 06:48] LABS: ALBUMIN 2.4 g/dL (3.4-5.0); CALCIUM 8.1 mg/dL (8.5-10.1); PHOSPHORUS 3.4 mg/dL (2.5-4.9); POTASSIUM 3.8 mmol/L (3.5-5.1)
[2019-07-01 06:51] LABS: CREATININE 1.3 mg/dL (0.6-1.0)
[2019-07-01 07:45] LABS: URINE CREATININE-RANDOM* 29.7 mg/dL; URINE PROTEIN-RANDOM* 16.5 mg/dL (<11.9)
--- NOTE | 2019-07-01 09:09 | EKG ---
[place] [address] [employer] [employer] [place] [address] ELECTROCARDIOGRAM REPORT Name: MICHAEL VALLE Room #: 439-P ADM IN M.R.#: [id number] Admission: 06/29/19 Attend Phys: Janice Pride MD Discharge: Date of : 65 Report #: [id number] THIS REPORT FOR: //name// [facility] ED Test Date: 2019-06-29 Test Time: 18:06:34 Pat Name: MICHAEL VALLE Department: Room: 439 Gender: F Service Delivery Director: JACKY : 1965 Requested By: Carolann Baca Order Number: [id number] MD: Nolan Stockton Measurements Intervals Lane Rate: 79 P: 0 RI: 152 QRS: -5 QRSD: 100 T: 99 QT: 417 QTc: 479 Interpretive Statements Sinus rhythm RSR' in V1 or V2, probably normal variant LVH with secondary repolarization abnormality Borderline prolonged QT interval Compared to ECG 09/24/2018 12:31:30 No significant change was found Electronically Signed On 07-01-2019 9:09:19 CDT by Nolan Stockton [email or web address] <ELECTRONICALLY SIGNED> By: Nolan Stockton MD, FAC 07/01/19 0909 180 180 Nolan Stockton MD, [facility] /EPI
[2019-07-01 09:32] VITALS: BP 120/63
--- NOTE | 2019-07-01 09:32 | NUR ---
ORDERS RECEIVED FOR EVAL AND TREAT. SPOKE WITH Pt WHO STATES SHE IS HOPING TO GO HOME TODAY AND HAS BEEN UP WITHOUT DIFFICULTY. NURSING NOTES SAY Pt IS UP AD DOT. Pt DENIES MOBILITY OR STRENGTH ISSUES AND IS DECLINING A FORMAL P.T. EVAL AT THIS TIME
[2019-07-01 14:25] VITALS: BP 120/63
[2019-07-01] MEDS ORDERED: CEFDINIR300 MG PO (14:39)
--- NOTE | 2019-07-01 20:26 | NUR ---
Assumed pt care at 7am.Pt in and out of bed with sba.Assessment completed.vss. Dr merino here,dc order noted.Pt requested for po antibotic rx prior to dc home but after waiting for over 2hour with the hope that Dr merino will be faxing rx to the unit,he faxed it to pt pharmacy.When pt was about to dc home,she asked for her blood sugar to be checked and it was 41.D50 1 amp iv given and pt stayed till dinner time.Dc summary compiled and pt finally left to home at 1800 per wc accompanied by table assembler.
[2019-07-02 07:07] LABS: GLYCOHEMOGLOBIN (HGB A1C) 10.8 % (4.8-5.6)
--- NOTE | 2019-07-02 08:39 | HC ---
[facility] [place] [address] CONSULTATION Name: MICHAEL VALLE Room #: 439-P [facility] IN M.R.#: [id number] Admission: 06/29/19 Attend Phys: Janice Pride MD Discharge: 07/01/19 Date of : 65 Report #: [id number] THIS REPORT FOR: //name// CC: Pura Nowak REASON FOR CONSULTATION: Elevated creatinine. REASON FOR PRESENTATION: Feeling weak and dizzy. HISTORY OF PRESENT ILLNESS: A 54-year-old with history of diabetes mellitus, diabetic retinopathy. She was told by her primary care physician, by her cattle manager that she had an elevated creatinine about a year ago. The patient was having lunch with her friend in a restaurant when she started to feel dizzy, lightheaded. She could not hold the utensils. She got back to the table with assistance of her friend and the restaurant operational risk consultant. She continued to have the above-mentioned symptoms. She went home and had a fall in her yard. She was assisted by her boyfriend and her neighbor to get back to the house. She rested for a couple of hours and then she started to have recurrent symptoms of dizziness upon standing up. She reported that her blood sugar has been in the 160s range. Blood pressure was stable. Laboratory values back in May of this year revealed that she had close to normal kidney function with a creatinine value of 1.3. She is known to have diabetes mellitus, hypertension, status post CABG in December of this year. She is also known to have rheumatoid arthritis. She is maintained on Humira, meloxicam, losartan, hydrochlorothiazide along with methotrexate. Creatinine on presentation yesterday was elevated above her baseline at 3, mandating a Nephrology consultation. PAST MEDICAL HISTORY: 1. Diabetes mellitus. 2. Coronary artery disease. 3. Long time immunosuppressive medication usage. 4. Depression. 5. Bilateral foot surgery. 6. Tonsillectomy. 7. Coronary artery disease, post CABG. MEDICATIONS: 1. Humira. 2. Gabapentin. 3. Methotrexate. 4. Meloxicam. 5. Hydrochlorothiazide. 6. Losartan. ALLERGIES: ACTOS and LISINOPRIL. [facility] [address] [place] [address] CONSULTATION Name: MICHAEL VALLE Room #: 439-P [facility] IN .R.#: [id number] Admission: 06/29/19 Attend Phys: Janice Pride MD Discharge: 07/01/19 Date of : 65 Report #: [id number] FAMILY HISTORY: Diabetes mellitus and hypertension run in the family. REVIEW OF SYSTEMS: GENERAL: Significant for weakness and tiredness along with dizziness. CARDIOVASCULAR: No chest pain or palpitation. PULMONARY: No cough or hemoptysis. GASTROINTESTINAL: No nausea or vomiting. GENITOURINARY: No frequency. No urgency. NEUROLOGICAL: As per the history of present illness. PHYSICAL EXAMINATION: GENERAL: She is alert, oriented, in no apparent distress. VITAL SIGNS: Temperature is 36.7, blood pressure was 173/66. HEAD AND NECK: No jugular venous distention. No bruit. No thyromegaly. CHEST: No crackles. CARDIOVASCULAR: No rub detected. ABDOMEN: Soft, nontender. LOWER EXTREMITIES: No edema with intact peripheral pulses. LABORATORY DATA: Reviewed. White blood cell count is 10.6. Sodium is 131, potassium is 4.3, chloride is 95, BUN is 38, creatinine is 3.0. IMPRESSION: 1. Acute kidney injury. 2. Diabetes mellitus. 3. Hypertension. 4. Dizziness of unknown source. 5. Rheumatoid arthritis with long-term immunosuppressive medication usage. 6. Coronary artery disease. PLAN: 1. Continue to hold meloxicam, hydrochlorothiazide, lisinopril. 2. Investigate the source for her acute kidney injury with appropriate laboratory values including urine studies and imaging. 3. Continue IV fluid. 4. Rule out obstructive uropathy given her history of bladder issues. 5. Investigation of her dizziness as per the primary team. <ELECTRONICALLY SIGNED> By: Peter Gordon MD 07/02/19 0839 0941 1042 Peter Gordon MD /nt
== END 2019-07-01 18:25 | disposition home or self-care (01) | DRG 683 ==
LOC: ER 17:55 → 4S 21:48 → EROBS 21:48 → 4S 23:09
PROVIDERS: Emergency Medicine; Hospitalist; Nurse Practitioner Acute Care; ADMIT Internal Medicine
DX: N17.9 Acute kidney failure, unspecified (principal); N39.0 Urinary tract infection, site not specified; E78.5 Hyperlipidemia, unspecified; E11.42 Type 2 diabetes mellitus with diabetic polyneuropathy; I25.10 Atherosclerotic heart disease of native coronary artery without angina pectoris; F31.9 Bipolar disorder, unspecified; M06.9 Rheumatoid arthritis, unspecified; E11.22 Type 2 diabetes mellitus with diabetic chronic kidney disease; E11.65 Type 2 diabetes mellitus with hyperglycemia; F41.9 Anxiety disorder, unspecified; I12.9 Hypertensive chronic kidney disease with stage 1 through stage 4 chronic kidney disease, or unspecified chronic kidney disease; Z88.8 Allergy status to other drugs, medicaments and biological substances; Z95.1 Presence of aortocoronary bypass graft; Z79.1 Long term (current) use of non-steroidal anti-inflammatories (NSAID); Z79.899 Other long term (current) drug therapy
CPT/HCPCS: 10100; 10195

== ENCOUNTER 2019-07-23 17:45 | Emergency (ER) | payer OTHER ==
[~2019-07-23] VITALS: Ht 177.8 cm; Wt 115.2 kg
[~2019-07-23 17:45] MED LIST changes: +ASA81BEC PO; +CATAPRES-TTS 21 EACH TRANSDERM; +CEFDINIR300 MG PO; +CYMBALTA30 MG PO; +DEPAKOTE ER500 M1 PO; +LIPITOR 40 MG T40 M1 PO; +MOBIC7.5 MG PO; +OXYBUTYNIN 5 MG5 M2 PO; +ROSUVASTATIN CA40 MG PO; +TOUJEO SOL300 UNIT/1 SUBQ
[2019-07-23 18:17] LABS: ABSOLUTE NEUTROPHILS 5.5 thou/uL (1.4-8.2); BASOPHILS 1.2 % (0.0-2.0); EOSINOPHILS 5.3 % (0.0-3.0); HEMATOCRIT 39.9 % (37.0-47.0); HEMOGLOBIN 13.3 gm/dL (12.0-15.0); LYMPHOCYTES 35.4 % (24.0-44.0); MCH 29.5 pg (26.0-34.0); MCHC 33.4 g/dL (28.0-37.0); MCV 88.6 fL (80.0-100.0); MONOCYTES 4.7 % (1.0-8.0); PLATELET COUNT 228 thou/uL (150-400); POLYS 53.4 % (36.0-66.0); RDW 13.8 % (10.5-14.5); WBC 10.3 thou/uL (4.0-11.0)
[2019-07-23 18:22] LABS: ANION GAP 8 mmol/L (7-16); BUN 29 mg/dL (7-18); CALCIUM 9.3 mg/dL (8.5-10.1); CHLORIDE 93 mmol/L (98-107); CO2 28 mmol/L (21-32); CREATININE 1.8 mg/dL (0.6-1.0); GLUCOSE 438 mg/dL (74-106); POTASSIUM 4.2 mmol/L (3.5-5.1); SODIUM 129 mmol/L (136-145)
[2019-07-23 18:32] LABS: ALBUMIN 3.2 g/dL (3.4-5.0); SGOT 17 U/L (15-37); SGPT 14 U/L (30-65); TOTAL BILIRUBIN 0.4 mg/dL (<0.1-1.0); TOTAL PROTEIN 7.5 g/dL (6.4-8.2); TROPONIN-I <0.06 ng/mL (<0.06)
--- NOTE | 2019-07-23 19:33 | EKG ---
[place] [address] [place] [address] ELECTROCARDIOGRAM REPORT Name: LEONARDMICHAEL JUAREZ [id number] Admission: 07/23/19 Attend Phys: Discharge: Date of : 65 Report #: [id number] THIS REPORT FOR: //name// [facility] ED Test Date: 2019-07-23 Test Time: 17:49:32 Pat Name: MICHAEL VALLE Department: Room: Gender: F Rock Breaker: : 1965 Requested By: Maurilio Mahajan Order Number: [id number] MD: Nolan Stockton Measurements Intervals [place] Rate: 79 P: 29 FL: 205 QRS: -12 QRSD: 84 T: 71 QT: 392 QTc: 450 Interpretive Statements Sinus rhythm Borderline prolonged FL interval Left ventricular hypertrophy with repolarization abnormality Compared to ECG 06/29/2019 18:06:34 No significant change was found Electronically Signed On 07-23-2019 19:33:16 [employer] HR GENERALIST by Nolan Stockton [email or web address] <ELECTRONICALLY SIGNED> By: Nolan Stockton MD, [facility] 07/23/19 1933 1749 174 Nolan Stockton MD, FACC /EPI
[2019-07-23 21:05] VITALS: BP 152/71
== END 2019-07-23 21:05 | disposition home or self-care (01) ==
LOC: ER 17:45
PROVIDERS: Emergency Medicine
DX: E86.0 Dehydration (principal); I10 Essential (primary) hypertension; M06.9 Rheumatoid arthritis, unspecified; E11.40 Type 2 diabetes mellitus with diabetic neuropathy, unspecified; I25.10 Atherosclerotic heart disease of native coronary artery without angina pectoris; F32.9 Major depressive disorder, single episode, unspecified; Z90.89 Acquired absence of other organs; Z88.8 Allergy status to other drugs, medicaments and biological substances

== ENCOUNTER 2021-02-18 14:09 | Inpatient (IN) | payer OTHER ==
[~2021-02-18] VITALS: Ht 177.8 cm; Wt 128.0 kg
--- NOTE | ~2021-02-18 | HC ---
[facility] [place] [address] CONSULTATION Name: MICHAEL VALLE Room #: 361-P ADM IN M.R.#: [id number] Admission: 02/18/21 Attend Phys: Calros Herrera MD Discharge: Date of : 65 Report #: [id number] THIS REPORT FOR: cc: Garry Nowak MD, Shyam MD Khosla,Kevin Monk MD ~ DOC #: [id number] Kevin Arauz MD DATE OF SERVICE: 02/18/2021 HISTORY OF PRESENT ILLNESS: This is a 55-year-old female patient who has numerous comorbidities. This patient was admitted with progressive weakness and numbness on the right side, this happened about 2 days ago, this came in spontaneously. She has actually had a fall, but she did not hit her head. The fall was about 3 days ago. She was brought to the Emergency Room. A CT scan of the head which was unremarkable. Plan was to do CT angiogram that cannot be done because of the patient's creatinine has gone up. Therefore, a stat MRI was done and MRI indicated lacunar CVA, but MRA was unremarkable and there was no thrombus there. The patient was already on Plavix and still had these symptoms. REVIEW OF SYSTEMS: Pretty extensive in this patient. This patient had a bypass surgery. She has a history of bipolar disorder. She says she has a history of CVA in the past, but I reviewed old record and an MRI was done at that time, it has not shown any stroke at least one time. She has diabetic neuropathy to an extent where she does not have any position sense. She has diabetes as well as hypertension and hyperlipidemia. She has a history of rheumatoid arthritis. Previously, she has been admitted with chest pain. Presently, she is not complaining of any new eyes, ENT, cardiac, respiratory, GI, , musculoskeletal, constitutional, dermatological, hematological, psychiatric, throat, allergic symptom associated with present symptomatology. PAST MEDICAL HISTORY: Positive for cardiac problems. FAMILY HISTORY: Negative for any early age stroke. SOCIAL HISTORY: She does not smoke and does not abuse alcohol. She usually goes to treatment for her medical care. PHYSICAL EXAMINATION: Indicate that she is alert, responsive. Her speech, concentration, fund of knowledge and memory is at her baseline. Cranial nerve examination 2-12 is unremarkable. Neuromuscular examination is positive for absent reflexes as well as loss of position sense. All the sensations are markedly diminished in the legs. She does not appear to have any cyanosis or jaundice. Edema is difficult ____ this patient to saw her pulses. She is morbidly obese and in fact is considering bariatric surgery. Her hearing and vision looks adequate. She has no carotid bruit or thyroid mass. No [address] [address] CONSULTATION Name: MICHAEL VALLE Room #: 361-P ADM IN M.R.#: [id number] Admission: 02/18/21 Attend Phys: Carlos Herrera MD Discharge: Date of : 65 Report #: [id number] respiratory difficulty. Cardiac examination is unremarkable. VITAL SIGNS: Blood pressure is 140/60, respirations 15, pulse is 72, temperature is 97.8. LABORATORY DATA: WBC count is 8.4, GFR is only 13 which has significant decrease since the last time. MRI was reviewed and MRI demonstrated finding consistent with lacunar cerebrovascular accident. IMPRESSION: 1. Lacunar cerebrovascular accident. 2. This happened in spite of being on Plavix. We will add aspirin for 21-day. We will await the carotid Doppler to see if there is a lesion, which correspond to that and we will do an echocardiogram. She mainly need to work on risk factor, diabetes, hypertension and I am going to send a hypercoagulable profile in this patient, if we can do it in the hospital, otherwise she needs that as an outpatient. She does have a rheumatological disorder that can also contribute to her symptoms and she needs to talk to her control tower radio operator after her dismissal. The patient has severe peripheral neuropathy that is probably because of diabetes, but does have a longstanding process, which need to be addressed as an outpatient. We will await these results and decide about further management. Dr. Buchanan will follow up with you from tomorrow for neurological care. Thank you very much for this referral. Kevin Arauz MD PK/ALL By: 1735 50 Kevin Arauz MD /nt
[~2021-02-18 14:09] MED LIST changes: -CARVEDILOL12.5 MG PO; +COREG25 M1 PO; +GABAPENTIN600 M1 PO; -NEURONTIN 300M300 M2 PO
[2021-02-18 14:19] VITALS: BP 111/62
[2021-02-18 14:43] LABS: ABSOLUTE NEUTROPHILS 4.3 thou/uL (1.4-8.2); BASOPHILS 1.4 % (0.0-2.0); EOSINOPHILS 4.4 % (0.0-3.0); HEMATOCRIT 38.7 % (37.0-47.0); HEMOGLOBIN 12.6 gm/dL (12.0-15.0); LYMPHOCYTES 33.8 % (24.0-44.0); MCH 28.3 pg (26.0-34.0); MCHC 32.5 g/dL (28.0-37.0); MCV 87.2 fL (80.0-100.0); PLATELET COUNT 227 thou/uL (150-400); POLYS 51.4 % (36.0-66.0); RBC 4.44 mil/uL (4.20-5.00); RDW 14.6 % (10.5-14.5); WBC 8.4 thou/uL (4.0-11.0)
[2021-02-18 14:51] LABS: ANION GAP 8 mmol/L (7-16); BUN 48 mg/dL (7-18); CALCIUM 8.8 mg/dL (8.5-10.1); CHLORIDE 99 mmol/L (98-107); CO2 27 mmol/L (21-32); CREATININE 3.7 mg/dL (0.6-1.0); GLUCOSE 237 mg/dL (74-106); POTASSIUM 3.5 mmol/L (3.5-5.1); SODIUM 134 mmol/L (136-145)
[2021-02-18 14:56] LABS: APTT 24.1 Seconds (24.5-32.8); PROTIME 10.9 Seconds (10.5-12.1)
[2021-02-18 15:02] LABS: ALBUMIN 3.2 g/dL (3.4-5.0); SGOT 22 U/L (15-37); SGPT 21 U/L (14-59); TOTAL BILIRUBIN 0.3 mg/dL (0.2-1.0); TOTAL PROTEIN 7.8 g/dL (6.4-8.2); TROPONIN-I <0.06 ng/mL (<0.06)
[2021-02-18] MEDS ORDERED: PLAVIX 75 MG TA75 MG PO (15:30)
[2021-02-18 15:48] VITALS: BP 131/57
[2021-02-18 16:25] VITALS: BP 140/60
[2021-02-18] MEDS ORDERED: TORSEMIDE20 MG PO (17:51)
[2021-02-18] MEDS ORDERED: JARDIANCE10 MG PO (17:51)
[2021-02-18] MEDS ORDERED: HYDROXYZINE PAM25 M1 PO (17:52)
[2021-02-18] MEDS ORDERED: QUETIAPINE FUMA50 MG PO (17:52)
[2021-02-18] MEDS ORDERED: LEXAPRO20 MG PO (17:52)
[2021-02-18] MEDS ORDERED: OZEMPIC0.25 MG/0. SUBQ (17:53)
[2021-02-18 20:35] VITALS: BP 151/84
[2021-02-19 00:03] VITALS: BP 127/67
[2021-02-19 04:39] LABS: ABSOLUTE NEUTROPHILS 4.4 thou/uL (1.4-8.2); BASOPHILS 0.7 % (0.0-2.0); EOSINOPHILS 6.8 % (0.0-3.0); HEMOGLOBIN 12.1 gm/dL (12.0-15.0); LYMPHOCYTES 30.5 % (24.0-44.0); MCH 29.1 pg (26.0-34.0); MCHC 33.7 g/dL (28.0-37.0); MCV 86.3 fL (80.0-100.0); MONOCYTES 7.9 % (1.0-8.0); PLATELET COUNT 192 thou/uL (150-400); POLYS 54.1 % (36.0-66.0); RBC 4.17 mil/uL (4.20-5.00); RDW 14.6 % (10.5-14.5); WBC 8.1 thou/uL (4.0-11.0)
[2021-02-19 04:51] VITALS: BP 134/72
[2021-02-19 05:15] LABS: ANION GAP 13 mmol/L (7-16); BUN 50 mg/dL (7-18); CALCIUM 8.3 mg/dL (8.5-10.1); CHLORIDE 101 mmol/L (98-107); CHOLESTEROL 129 mg/dL (<200); CO2 24 mmol/L (21-32); CREATININE 3.3 mg/dL (0.6-1.0); GLUCOSE 237 mg/dL (74-106); HDL CHOLESTEROL 34 mg/dL (>40); LDL CHOLESTEROL 53 mg/dL (<100); MAGNESIUM 2.3 mg/dL (1.8-2.4); POTASSIUM 3.3 mmol/L (3.5-5.1); SODIUM 138 mmol/L (136-145); TC:HDL 3.8 Ratio (Not establshd); TRIGLYCERIDE 214 mg/dL (<150); VLDL 43 mg/dL (<40)
[2021-02-19 05:23] LABS: SERUM ASSESSMENT Clear
--- NOTE | 2021-02-19 07:05 | EKG ---
[address] [place] [address] ELECTROCARDIOGRAM REPORT Name: MICHAEL VALLE Room #: 361-P ADM IN M.R.#: [id number] Admission: 02/18/21 Attend Phys: Carlos Herrera MD Discharge: Date of : 65 Report #: [id number] [facility] ED Test Date: 2021-02-18 Test Time: 14:42:08 Pat Name: MICHAEL VALLE Department: Room: 361 Gender: F Laminating Machine Offbearer: demetria : 1965 Requested By: Gio Whiting Order Number: [id number] MD: Chinedu Tyler Measurements Intervals [place] Rate: 70 P: 0 OR: 171 QRS: -14 QRSD: 106 T: 98 QT: 450 QTc: 486 Interpretive Statements Sinus rhythm RSR' in V1 or V2, probably normal variant LVH with secondary repolarization abnormality Borderline prolonged QT interval Compared to ECG 07/23/2019 17:49:32 RSR' in V1 or V2 now present Electronically Signed On 02-19-2021 7:05:17 CDT by Chinedu Tyler [email or web address] <ELECTRONICALLY SIGNED> By: Chinedu Tyler MD, [facility] 02/19/21 0705 1442 1442 Chinedu Tyler MD, [facility] /EPI
[2021-02-19 07:29] VITALS: BP 139/70
[2021-02-19 11:21] VITALS: BP 143/66
[2021-02-19 13:09] LABS: IgA 444 mg/dL (87-352); IgG 1534 mg/dL (586-1602); IgM 107 mg/dL (26-217)
[2021-02-19] MEDS ORDERED: NEURONTIN 300M300 M2 PO (14:30)
[2021-02-19] MEDS ORDERED: MIRALAX17 GM PO (14:30)
[2021-02-19] MEDS ORDERED: ASA81BEC PO (14:33)
[2021-02-19 15:29] VITALS: BP 153/64
[2021-02-19 17:22] VITALS: BP 153/64
[2021-02-20 00:06] LABS: GLYCOHEMOGLOBIN (HGB A1C) 10.5 % (4.8-5.6)
--- NOTE | 2021-02-24 12:43 | HC ---
[facility] [place] [address] CONSULTATION Name: MICHAEL VALLE Room #: 361-P [facility] IN M.R.#: [id number] Admission: 02/18/21 Attend Phys: Carlos Herrera MD Discharge: 02/19/21 Date of : 65 Report #: [id number] THIS REPORT FOR: cc: Garry Nowak MD, Shyam MD Smithson,Aj Dominguez MD ~ DOC #: [id number] Aj Boss MD DATE OF SERVICE: 02/19/2021 HISTORY OF PRESENT ILLNESS: This is a 55-year-old white female who was admitted with right-sided weakness and having a fall 2 days prior. She has had balance problems. CT scan showed an old left basal ganglia infarct, but MRI confirmed two small subacute infarcts, one in the left thalamus and the other one in the right parietal lobe. Neurology is involved and they felt that the left thalamic one that was causing her right-sided weakness. She had this event while on Plavix already. Neurology has placed her on additional aspirin for 21 days. The patient has functional deficits with mobility and balance and ADLs and we are seeing in rehabilitation medicine consultation. She was also noted to have acute renal insufficiency upon admission with a creatinine up to 3.7 with normal at 1.8. It has since improved to 3.3. PRIOR MEDICAL HISTORY: Includes diabetes mellitus, hypertension, elevated lipids, rheumatoid arthritis, depression, bipolar. She has had prior coronary artery bypass grafting. She has had a prior TIA/CVA, history of diabetic neuropathy, irritable bowel syndrome, fibromyalgia. There is a note of bilateral foot drop, bilateral foot surgery. She is morbidly obese. MEDICATIONS: Please see the full medication listing. ALLERGIES: ASPARTAME, LAMOTRIGINE, LISINOPRIL and PIOGLITAZONE. SOCIAL HISTORY: Lives in a house with her significant other/fiance and her mother. There is a one level house. She used a walker on occasion. They have an outside caregiver that assists with laundry and cleaning. REVIEW OF SYSTEMS: No current complaints of chest pain, shortness of breath or abdominal discomfort. PHYSICAL EXAMINATION: GENERAL: A 55-year-old obese, pleasant white female in no obvious distress. VITAL SIGNS: Last recorded temperature 97.7, pulse 71, respirations 18, blood pressure 143/66. NEUROLOGIC: She is alert and oriented. EOMs appeared to be full. Follows basic 1-step commands. She does have some right-sided weakness. A grade 4-/5 with some right-sided decreased coordination. She has some decreased distal [address] [address] CONSULTATION Name: MICHAEL VALLE Room #: 361-[facility] IN M.R.#: [id number] Admission: 02/18/21 Attend Phys: Carlos Herrera MD Discharge: 02/19/21 Date of : 65 Report #: [id number] sensation consistent with her premorbid peripheral neuropathy. She does have decreased balance and Romberg was definitely positive when tested. She was noted to be min assist coming to stand and does have decreased balance. ASSESSMENT: A 55-year-old white female with the following problems: 1. Two new cerebrovascular accidents, left thalamic and right parietal. 2. Right-sided hemiparesis. 3. Decreased balance with gait instability. 4. Acute renal insufficiency superimposed on chronic kidney disease. 5. Old left basal ganglia infarct. 6. Diabetes mellitus. 7. Premorbid history of diabetic neuropathy. 8. History of bipolar disorder. 9. History of rheumatoid arthritis. 9. Hypertension. 10. Elevated lipids. 11. Anxiety. 12. Exogenous obesity. 13. History of irritable bowel syndrome. PLAN: We would recommend the patient for a short acute in-hospital inpatient rehabilitation stay. She has the two new strokes with the left thalamic stroke thought to be symptomatic with the clinical presentation of the right-sided hemiparesis. She has decreased balance and is at risk for further falls. She has had aspirin added to her Plavix. We would recommend an interdisciplinary acute inpatient rehabilitation stay to maximize her functional independence, so she can return back to the home setting. Discussed with the patient who is amenable. Insurance precertification issues to be checked. Aj Boss MD DGS/IGGY <ELECTRONICALLY SIGNED> By: Aj Boss MD 02/24/21 1243 [id number] [id number] Aj Boss MD /nt
== END 2021-02-19 19:25 | DRG 65 ==
LOC: ER 14:09 → 3W 16:15 → EROBS 16:15 → 3W 16:22
PROVIDERS: Emergency Medicine; Nurse Practitioner; Psychiatry & Neurology Neurology; Psychiatry & Neurology Neuromuscular Medicine; ADMIT Hospitalist; ATTEND Hospitalist
DX: I63.81 Other cerebral infarction due to occlusion or stenosis of small artery (principal); G81.91 Hemiplegia, unspecified affecting right dominant side; N17.9 Acute kidney failure, unspecified; Z68.41 Body mass index [BMI] 40.0-44.9, adult; E78.5 Hyperlipidemia, unspecified; M06.9 Rheumatoid arthritis, unspecified; I25.10 Atherosclerotic heart disease of native coronary artery without angina pectoris; S80.02XA Contusion of left knee, initial encounter; N18.9 Chronic kidney disease, unspecified; I12.9 Hypertensive chronic kidney disease with stage 1 through stage 4 chronic kidney disease, or unspecified chronic kidney disease; F43.10 Post-traumatic stress disorder, unspecified; E11.22 Type 2 diabetes mellitus with diabetic chronic kidney disease; E66.01 Morbid (severe) obesity due to excess calories; F41.9 Anxiety disorder, unspecified; Z20.822 Contact with and (suspected) exposure to COVID-19; X58.XXXA Exposure to other specified factors, initial encounter; M79.7 Fibromyalgia; K58.9 Irritable bowel syndrome, unspecified; F31.9 Bipolar disorder, unspecified; E11.42 Type 2 diabetes mellitus with diabetic polyneuropathy; Z95.1 Presence of aortocoronary bypass graft; Z88.8 Allergy status to other drugs, medicaments and biological substances; Y93.89 Activity, other specified; Y92.89 Other specified places as the place of occurrence of the external cause; Y99.8 Other external cause status
CPT/HCPCS: 10879

== ENCOUNTER 2021-02-19 16:23 | Inpatient (IN) | payer OTHER ==
[~2021-02-19] VITALS: Ht 177.8 cm; Wt 127.0 kg
--- NOTE | ~2021-02-19 | HC ---
[facility] [place] [address] CONSULTATION Name: MICHAEL VALLE Room #: 514-P ADM IN M.R.#: [id number] Admission: 02/19/21 Attend Phys: Aj Boss MD Discharge: Date of : 65 Report #: [id number] THIS REPORT FOR: cc: Garry Nowak MD, Shyam MD Al-Absi,Peter Hopper MD ~ DOC #: [id number] Peter Gordon MD REASON FOR CONSULTATION: Elevated creatinine. REASON FOR THE PRESENTATION: Unsteadiness. HISTORY OF PRESENT ILLNESS: A 55-year-old with history of diabetes mellitus and all diabetic complications including diabetic nephropathy, diabetic retinopathy, diabetic neuropathy. She is also known to have history of rheumatoid arthritis. She previously had repeated strokes in the past. She presented with unsteadiness and was found to get a new infarct. She was admitted to the rehab floor for further evaluation. The patient's creatinine on arrival was 3.7; however, it continued to improve and it went down to 2.4. We had evaluated this patient for repeated episodes of acute kidney injury in the past. I took care of her back in 06/2019 and at that time, her creatinine was 3 and improved to 1.8 upon discharge. She also sees a tube sizer and cutter operator at [facility]. She denies any active urinary symptoms at this point. CURRENT MEDICATIONS: 1. Methotrexate. 2. Plavix. 3. Carvedilol. 4. Gabapentin. 5. Atorvastatin. 6. Ozempic. 7. Humira. 8. Glargine insulin. PAST MEDICAL HISTORY: Extensive and includes the followin. Diabetes mellitus with all of its complications including diabetic retinopathy, neuropathy and nephropathy. 2. Hypertension. 3. History of cerebrovascular accident in the past. 4. Coronary artery disease, post coronary artery bypass graft. 5. Carpal tunnel release. 6. Irritable bowel syndrome. 7. Rheumatoid arthritis requiring immunosuppressive medications. ALLERGIES: ACTOS AND LISINOPRIL. [facility] [address] [place] [address] CONSULTATION Name: LEONARDMICHAEL Room #: 514-P [facility] IN M.R.#: [id number] Admission: 02/19/21 Attend Phys: Aj Boss MD Discharge: Date of : 65 Report #: [id number] FAMILY HISTORY: Significant for diabetes mellitus and hypertension. REVIEW OF SYSTEMS: GENERAL: No fever or chills. CARDIOVASCULAR: No chest pain or palpitation. PULMONARY: No cough or hemoptysis. GASTROINTESTINAL: No nausea or vomiting. GENITOURINARY: No frequency, no urgency. MUSCULOSKELETAL: As per the history of present illness. NEUROLOGIC: As per the history of present illness. PHYSICAL EXAMINATION: VITAL SIGNS: Temperature 36.5, pulse rate 72, respiratory rate is 18, blood pressure is 164/81. NECK: No jugular venous distention, no bruit, no thyromegaly. CHEST: No crackles. CARDIOVASCULAR: No rub detected. ABDOMEN: Soft, nontender. EXTREMITIES: Lower extremities, +1 edema. LABORATORY DATA: Reviewed and the patient has a hemoglobin of 11.5. Sodium of 139, potassium 3.9, BUN of 45, creatinine of 2.4. IMPRESSION AND PLAN: 1. Acute kidney injury. 2. Chronic kidney disease with a baseline creatinine of around 2.0. 3. New stroke. 4. Diabetes mellitus. 5. Hypertension. PLAN: 1. The patient's creatinine seems to be improving and trending down to her baseline. 2. She will need significant improvement of her blood pressure reading and volume status. 3. Initiate on thiazide diuretics. 4. Watch kidney function. 5. SHE IS ALLERGIC TO LISINOPRIL and will try to stay away from it even though she might benefit from the angiotensin receptor yaya for long-term renal protection. 6. Continue rehabilitation efforts. 7. Management of her rheumatoid arthritis and immunosuppression as per the primary team. Peter Gordon MD [facility] [address] CONSULTATION Name: MICHAEL VALLE Room #: 514-P ADM IN M.R.#: [id number] Admission: 02/19/21 Attend Phys: Aj Boss MD Discharge: Date of : 65 Report #: [id number] By: [id number] Peter Gordon MD /jagdish
[~2021-02-19 16:23] MED LIST changes: +HYDROXYZINE PAM25 M1 PO; +JARDIANCE10 MG PO; +MIRALAX17 GM PO; +NEURONTIN 300M300 M2 PO; +OZEMPIC0.25 MG/0. SUBQ; +PLAVIX 75 MG TA75 MG PO; +QUETIAPINE FUMA50 MG PO; +TORSEMIDE20 MG PO
[2021-02-19 19:35] VITALS: BP 164/73
--- NOTE | 2021-02-20 | NUR ---
PT ADMITTED TO 5N FROM [facility] THIS EVENING POST LEFT SIDED CVA. PT HAS RIGHT SIDED WEAKNESS AND NUMBNESS. FALL PRECAUTIONS IN PLACE. VSS. MEDS GIVEN ORDERED AND WELL TOLERATED. INSULIN GIVEN. UP TO THE BATHROOM WITH 2 ASST/GAIT/WALKER. PICTURE TAKEN OF WOUND ON LEFT KNEE. ADMIT HX AND ASSESSMENT COMPLETED. SLEEPING WELL AT THIS TIME. WILL CONTINUE TO MONITOR FREQUENTLY.
[2021-02-20 05:02] LABS: HEMATOCRIT 34.9 % (37.0-47.0); HEMOGLOBIN 11.5 gm/dL (12.0-15.0); MCH 28.6 pg (26.0-34.0); MCHC 32.9 g/dL (28.0-37.0); MCV 87.1 fL (80.0-100.0); RBC 4.01 mil/uL (4.20-5.00); RDW 14.6 % (10.5-14.5)
[2021-02-20 05:25] LABS: CALCIUM 8.3 mg/dL (8.5-10.1); CREATININE 2.4 mg/dL (0.6-1.0); POTASSIUM 3.9 mmol/L (3.5-5.1)
[2021-02-20 08:00] VITALS: BP 144/47
--- NOTE | 2021-02-20 10:28 | NUR ---
ASSUMED CARE AT 0700. PATIENT IS ALERT AND ORIENTEDX4. PATIENT HAS RIGHT SIDED WEAKNESS R/T LEFT CVA. LUNGS ARE CLEAR. ABD IS SOFT WITH BSX4. DR. MON[facility] HERE TO SEE PATIENT. PATIENT HAS S.L. IN HER RIGHT A.C. S.L. PATIENT AND INTACT. FALL AND SAFETY PROTOCOLS IN PLACE. DENIES PAIN. PATIENT IS UP WITH GAIT BELT AND ASSIST OF 1-2 STAFF TO BATHROOM. WILL CONTNUE TO MONITER .
[2021-02-20 19:50] VITALS: BP 145/73
--- NOTE | 2021-02-21 03:26 | NUR ---
MINIMAL RIGHT SIDE WEAKNESS, DOES WELL UP TO TOILET WITH GAIT BELT, WALKER, AND CONTACT GUARD ASSIST. APPRECIATES RISER PLACED ON TOILET, IT MAKES IT EASIER TO STAND BACK UP AFTER SHE SITS ON TOILET TO VOID
[2021-02-21 10:27] VITALS: BP 130/45
--- NOTE | 2021-02-21 10:27 | NUR ---
ASSISTED PT THIS AM TO BATHROOM AND PT WAS INCON. OF LARGE LOOSE BM THAT SMELLED SOUR. PT HAS SCAB TO LEFT KNEE FROM A FALL. PT UP WITH WALKER WITH STEADY GAIT. PT STATED SHE IS ALLERGIC TO SWEETNER AND POSS HAD REACTION FROM THAT. PT DIDN'T NEED INSULIN THIS AM DUE TO BS 149. PT HAS SL RT AC. PT STATED SHE WAS AFRAID OF THE INCON. OF STOOL.
[2021-02-21 17:00] VITALS: BP 148/80
[2021-02-21 19:21] VITALS: BP 161/57
--- NOTE | 2021-02-22 00:10 | NUR ---
CALLS FOR ONE PERSON ASSIST UP TO TOILET WITH GAIT BELT AND WALKER, BRIEF FOR STRESS INCONTINENCE. 72 UNITS OF LANTUS INSULIN AT HS FOR GLUCOSE = 186, DECLINED SNACK OR SSI AT THAT TIME. BED ALARM FOR SAFETY, PATIENT NEAR DESK IN ROOM 514
[2021-02-22 07:15] VITALS: BP 144/50
--- NOTE | 2021-02-22 10:44 | NUR ---
Chart review. unable to visit with pt rt she is working with OT.
[2021-02-22] MEDS ORDERED: ESCITALOPRAM OX20 MG PO (11:31)
--- NOTE | 2021-02-22 11:41 | NUR ---
Nutrition: pt admitted with lacunar CVA to rehab. PMH: DM, HTN, HLD, RA, bipolar, CABG, CVA, IBS. Good appetite eats most of meals on Carb controlled, Heart healthy diet. Noted A1C 10.5, Trigs 214. Diet education/review offered, pt declined stating she is familiar. BMI 40, extreme class 3 obesity. States weights have been fluctuating within 20#. Reports unable to tolerate sugar- free items, will add to diet order. On vitamin D. Low nutrition risk.
--- NOTE | 2021-02-22 13:47 | NUR ---
ASSUMED CARE AT 0700. ALERT AND ORIENTATED X 4. REPORTED HAVING FREQ LOOSE STOOL TODAY. NO STOOL REGIMEN GIVEN THIS ADMISSION SINCE MONDAY. PT HAS A HX OF IBS AND ALLERGY TO ARTICIAL SWEETNERS WHICH CAUSES HER DIARRHEA. CALLED KITCHEN TO INFORM OF ALLERGY. PT CONCERNED ABOUT NOT GETTING HER LEXAPRO SINCE MONDAY WELL. DENIES ANY PAIN. PARTICIPATING WITH THERAPY WITH MIN ASSISTANCE USING ONLY GAIT BELT WITH WALKING AND NEED SUPERVISION WITH TOILETING. APPETITE POOR FOR BREAKFAST. MANAGE TO INC HER INTAKE FOR LUNCH AND GAVE HER 24 UNITS PRE MEAL. [facility] COUNSELLOR NOTIFIED AND ORDERS RECEIVED FOR IMODIUM AND LEXAPRO. R SIDED WEAKNESS SEC TO CVA.
[2021-02-22 19:24] VITALS: BP 198/90
--- NOTE | 2021-02-22 22:09 | NUR ---
ASSUMED CARE OF PT AT 1915. PT IS A&OX4. IS ON ROOM AIR. DENIES PAIN. IS STABLE. PT BP WAS ELEVATED. ASSET PROTECTION ASSISTANT WAS NOTIFIED. ORDERS WERE GIVEN & CARRIED OUT. UPON REASSESSMENT, PT BP CONTINUED TO BE ELEVATED NEW ORDERS GIVEN & ARE TO BE CARRIED OUT. PT DENIES HEADACHE OR ANY OTHER SYMPTOMS AT THIS TIME. IS UP WITH STANDBY ASSIST X1, GB, WALKER. FALL PRECAUTIONS & HOURLY ROUNDING CONTINUED THIS SHIFT. LABS & VITALS REVIEWED. PT IS CURRENTLY ASLEEP. CALL LIGHT WITHIN REACH. WILL CONTINUE TO MONITOR.
[2021-02-23 07:15] VITALS: BP 189/72
--- NOTE | 2021-02-23 09:16 | NUR ---
ASSUMED CARE AT 0700. PATIENT IS ALERT AND ORIENTED X4. PATIENT LINDER'S, BUT PATIENT HAS RIGHT SIDED WEAKNESS THAT IS IMPROVING. LUNGS ARE CLEAR , ABD IS SOFT WITH BSX4. UP TO THE BATHROOM TO VOID MATEUS COLORED URINE WITH ASSIST OF 1 STAFF AND GAIT BELT AND WALKER. FALL AND SAFETY PROTOCOLS IN PLACE. DENIES PAIN AT THIS TIME. CONTINUES TO PROGRESS TOWARDS D/C GOALS. WILL CONTINUE TO MONITER.
--- NOTE | 2021-02-23 13:14 | NUR ---
team meeting, high bp today, new consult for nephrology. possible will need fww at dc. 02/26 dc home with nurse only related to changes in bp.
[2021-02-23 19:44] VITALS: BP 166/80
--- NOTE | 2021-02-23 23:23 | NUR ---
PT ASSESSMENT COMPLETED AND VSS. MEDS GIVEN ORDERED AND WELL TOLERATED. FALL PRECAUTIONS IN PLACE. UP TO THE BATHROOM WITH ASST/GAIT/WALKER. STEADY. PT BG 46 THIS EVENING. PT DID FEEL THAT IT WAS LOW AND SAID THIS HAS ONLY HAPPENED TO HER 2 TIMES BEFORE AND BOTH TIMES SHE WAS IN THE HOSPITAL. SNACK PROVIDED AND MEAT HANGER MICHAEL CONTACTED. BG WENT UP TO 78 AND THEN 110. PER ORDERS HELD LANTUS THIS EVENING AND WILL RECHECK BG ONE TIME DURING THE NIGHT. PT DENIES NEEDS. PT STATES THAT SHE IS FEELING BETTER. SLEEPING WELL AT THIS TIME. WILL CONTINUE TO MONITOR FREQUENTLY.
[2021-02-24 07:15] VITALS: BP 164/81
--- NOTE | 2021-02-24 09:41 | NUR ---
FAXED HOME HEALTH REFERRAL TO [facility]. REQUIRING NURSING ONLY WITH PLANS TO DISCHARGE ON 02/26/21. WILL FOLLOW UP WITH HOME HEALTH AGENCIES TO SEE IF THEY CAN PROVIDE SERVICES. [facility] P [phone]; FAX [phone] [facility] P [phone]; FAX [phone]
--- NOTE | 2021-02-24 10:25 | NUR ---
ASSUMED CARE AT 0700. SLEPT FAIRLY WELL. ALERT AND ORIENTATED X 4. DENIES ANY PAIN. SOME SORENESS IN L KNEE FROM PREV FALL BUT DOES NOT REQ ANY PAIN MEDS. BP EARLIER THIS MORNING PER NIGHT RN WAS HIGH AND GIVEN NKECHI HYDRALAZINE. BP RECHECK 164/81, NKECHI CARVEDILOL GIVEN. PT DENIES ANY LOPEZ, LIGHTHEADEDNESS OR SOA. BG 171, APPETITE GOOD, INSULIN PREMEAL GIVEN. DENIES ANY BM TODAY. DIURESING ADEQ. PARTICIPATING WITH THERAPY. PLAN FOR DC HOME ON MONDAY.
[2021-02-24 20:12] VITALS: BP 175/72
--- NOTE | 2021-02-24 23:54 | NUR ---
PT ASSESSMENT COMPLETED. BP ELEVATED THIS EVENING. PRN DOSE OF BP MEDICATION GIVEN. WILL BE RECHECKING PT BP. LANTUS INSULIN GIVEN THIS EVENING WITH SNACK. WILL SPOT CHECK PT BP AND BG DURING THE NIGHT. PT MOD I IN THE ROOM AND STEADY. PT DENIES PAIN/N/SOA. SAT WNL ON RA. PT FEELING ANXIOUS ABOUT BG AND BP THIS EVEING. PROVIDED MUCH EMOTIONAL SUPPORT. PT SLEEPING WELL AT THIS TIME. WILL CONTINUE TO MONITOR FREQUENTLY.
[2021-02-25 05:45] LABS: ALBUMIN 2.9 g/dL (3.4-5.0); CALCIUM 8.6 mg/dL (8.5-10.1); CREATININE 1.5 mg/dL (0.6-1.0); PHOSPHORUS 3.9 mg/dL (2.5-4.9); POTASSIUM 4.1 mmol/L (3.5-5.1)
[2021-02-25 08:21] VITALS: BP 171/66
--- NOTE | 2021-02-25 11:55 | NUR ---
ASSUMED CARE AT 0700. SLEPT WELL. ALERT AND ORIENTATED X 4. DENIES ANY PAIN. BP WAS SLIGHTLY ELEVATED WITH NO COMPLAINS OF LOPEZ, LIGHTHEADEDNESS OR DIZZYNESS. DR RAMÍREZ STARTED ON LOSARTAN. BG 140, INSULIN HELD. APPETITE GOOD. DENIES ANY DIARRHEA. PARTICIPATING WITH THERAPY AND PROGRESSING TOWARDS GOAL. PLAN FOR DC HOME TOMORROW.
[2021-02-25 19:41] VITALS: BP 186/80
--- NOTE | 2021-02-26 03:22 | NUR ---
UP MODIFIED INDEPENDENT WITH WALKER IN ROOM. 68 UNITS LANTUS INSULIN GIVEN AT HS WITH HS BLOOD SUGAR OF 180. PLANS ON GOING HOME TODAY, REMINDED TO TAKE HER HOME MED JARDIANCE WITH HER. BLOOD PRESSURE CONTINUES TO RUN HIGH AND SHE HAS BEEN TAKING HYDRALAZINE
[2021-02-26 07:26] VITALS: BP 186/94
--- NOTE | 2021-02-26 07:31 | NUR ---
cont. with dc today, home with [facility] nurse only. orders to be sent to [facility].
[2021-02-26 08:07] VITALS: BP 196/77
--- NOTE | 2021-02-26 09:13 | NUR ---
ASSUMED CARE AT 0700. PATIENT IS ALERT AND ORIENTED X4. PATIENT HAS SOME RIGHT SIDED WEAKNESS. PATIENT IS MOD/I IN ROOM. PLAN D/C TO HOME LATER TODAY. PATIENT LUNGS ARE CLEAR. ABD IS SOFT WITH BSX4. UP TO THE BATHROOM TO VOID MATEUS COLORED URINE. FALL AND SAFETY PROTOCOLS IN PLACE. DENIES PAIN AT THIS TIME. CONTINUES TO PROGRESS TOWARDS D/C GOALS. WILL CONTINUE TO MONITER.
[2021-02-26] MEDS ORDERED: ASA81BEC PO (09:21)
[2021-02-26] MEDS ORDERED: CHLORTHALIDONE25 MG PO ×2 (09:21→10:37)
[2021-02-26] MEDS ORDERED: MIRALAX17 GM PO (09:21)
[2021-02-26] MEDS ORDERED: PLAVIX 75 MG TA75 MG PO (09:21)
[2021-02-26] MEDS ORDERED: PROBIOTIC1 EAC1 PO (09:21)
[2021-02-26] MEDS ORDERED: HYDRALAZINE 2525 MG PO ×4 (09:21→10:37)
[2021-02-26 10:35] VITALS: BP 186/94
--- NOTE | 2021-02-26 12:01 | NUR ---
PATIENT GIVEN DISCHARGE INSTRUCTIONS. PATIENT VERBALIZED INSTRUCTIONS. PATIENT LEFT WITH ALL OF HER BELONGINGS. PATIENT IS MOD/I IN ROOM AND AMBULATED FROM RECLINER TO W/C. PATIENT WAS ABLE TO WHEEL HERSELF FROM UNIT TO HER CAR. PATIENT AMBULATED FROM W/C TO HER CAR INDEPENDENTLY.
--- NOTE | 2021-02-26 13:00 | NUR ---
FAXED DISCHARGE ORDERS AND SUMMARY TO [facility]. NOTED NURSING ONLY. WILL CONFIRM THEY RECEIVED AND BEGIN HOME HEALTH SERVICES. [facility] P [phone]; FAX [phone]
--- NOTE | 2021-03-01 12:02 | H ---
[facility] [place] [address] HISTORY AND PHYSICAL Name: MICHAEL VALLE Room #: 514-P [facility] IN M.R.#: [id number] Admission: 02/19/21 Attend Phys: Aj Boss MD Discharge: 02/26/21 Date of : 65 Report #: [id number] THIS REPORT FOR: cc: Garry Nowak MD, Shyam MD Smithson,Aj Dominguez MD ~ DOC #: [id number] Aj Boss MD HISTORY OF PRESENT ILLNESS: Patient is a 55-year-old white female who was originally admitted 02/18/2021 with right-sided weakness and having had a fall 2 days prior. She was noted to have balance problems. MRI confirmed 2 small new subacute infarcts, one of the left thalamus and the other one involving the right parietal lobe. She also has an old left basal ganglia infarct. Neurology was involved and noted that this event occurred while she was on Plavix already. They placed her on an additional aspirin for 21 days. She is noted to have significant functional mobility and ADL deficits and has been admitted for acute in-hospital inpatient rehabilitation. She also had acute renal insufficiency with an increase in her creatinine up to 3.7, when it was originally 1.8. It had improved to 3.3 prior to rehabilitation admission. PAST MEDICAL HISTORY: Diabetes mellitus, hypertension, elevated lipids, rheumatoid arthritis, depression, bipolar. She has had prior coronary artery bypass grafting. She has had a prior TIA and CVA with a history of diabetic neuropathy, irritable bowel syndrome, fibromyalgia. She has a history of bilateral foot drop, bilateral foot surgery and is morbidly obese. MEDICATIONS: Please see the full medication listing. ALLERGIES: ASPARTAME, LAMOTRIGINE, LISINOPRIL AND PIOGLITAZONE. SOCIAL HISTORY: Lives in a house with her significant other/fiance and her mother. This is a 1-story house. She used a walker on occasion. They have an outside caregiver that assists with laundry and cleaning. REVIEW OF SYSTEMS: No complaints of chest pain, shortness of breath or abdominal discomfort. PHYSICAL EXAMINATION: GENERAL: A 55-year-old obese white female seen earlier. VITAL SIGNS: Temperature is 36.7, pulse 72, respirations 16, blood pressure 144/47. The patient is alert, pleasant, oriented. HEENT: Appeared to be benign. EOMs appeared to be full. CHEST: Sounded clear to auscultation. CARDIAC: Regular rate and rhythm. ABDOMEN: Obese. Bowel sounds positive, nontender. [address] [address] HISTORY AND PHYSICAL Name: MICHAEL VALLE Room #: 514-P [facility] IN M.R.#: [id number] Admission: 02/19/21 Attend Phys: Aj Boss MD Discharge: 02/26/21 Date of : 65 Report #: [id number] GENITOURINARY AND RECTAL: Deferred. NEUROLOGIC: She does have some right-sided weakness with right upper extremity 4-/5 with some right sided decreased coordination and right lower extremity appears a little weaker than the left lower extremity with right lower extremity, probably 4-/5 with left lower extremity 4/5. Left upper extremity is 4/5. She does have some decreased coordination right upper extremity. She also has decreased sensation distal lower extremities consistent with peripheral neuropathy. She does have some decreased balance during standing and is min assist coming to stand. IMPRESSION: A 55-year-old white female with the following problems. 1. Two new cerebrovascular accidents involving left thalamic and right parietal. 2. Right-sided hemiparesis. 3. Decreased balance with gait instability. 4. Acute renal insufficiency, superimposed on chronic kidney disease. 5. Old left basal ganglia infarct. 6. Diabetes mellitus. 7. Premorbid history of diabetic neuropathy. 8. History of bipolar disorder. 9. History of rheumatoid arthritis. 10. Hypertension. 11. Elevated lipids. 12. Anxiety. 13. Exogenous obesity. 14. History of irritable bowel syndrome. PLAN: Patient has been admitted for acute in-hospital inpatient rehabilitation. Please see the previous and current functional status. As far as risk of complication, she has the above noted comorbidities. Initial plan of care involves the interdisciplinary acute inpatient rehabilitation program. Measurable functional goals would be for her to become modified independent with transfers, mobility and ADLs and to be able to return to her prior living situation. Prognosis is reasonably good with estimated length of stay probably fairly short around 7-10 days, although she may need longer depending on how she does, especially from a balance perspective. Potential barriers would include her multiple medical comorbidities and decreased functional status. Patient meets diagnostic criteria for an acute in-hospital inpatient rehabilitation stay. She meets the medical necessity criteria and we will have the programmer analyst consultant physicians continue to follow. She does have the tolerance for therapies and has appropriate discharge goals back to the home setting. [facility] [address] [place] [address] HISTORY AND PHYSICAL Name: MICHAEL VALLE Room #: 514-P [facility] IN M.R.#: [id number] Admission: 02/19/21 Attend Phys: Aj Boss MD Discharge: 02/26/21 Date of : 65 Report #: [id number] MD ANA CovingtonS/CHI/IQB <ELECTRONICALLY SIGNED> By: Aj Boss MD 03/01/21 1202 1315 1404 Aj Boss MD /nt
--- NOTE | 2021-03-01 12:02 | PLAN ---
[facility] [place] [address] REHAB UNIT PLAN OF CARE Name: MICHAEL VALLE Room #: 514-P [facility] IN M.R.#: [id number] Admission: 02/19/21 Attend Phys: Aj Boss MD Discharge: 02/26/21 Date of : 65 Report #: [id number] THIS REPORT FOR: cc: Garry Nowak MD, Shyam MD Smithson,Aj Dominguez MD ~ DOC #: [id number] Aj Boss MD DATE OF SERVICE: 02/22/2021 PROGRESS NOTE AND OVERALL PLAN OF CARE HISTORY OF PRESENT ILLNESS: The patient was seen back today in followup. She was in no distress. Temperature 98, pulse 70, respirations 18, blood pressure 161/57. She is alert, follows basic commands. EOMs are full. Does reasonably well with bilateral upper extremity, [id number] and rapid alternating movements. No obvious focal neurologic changes are noted today on exam. She is working in therapies with transfers at a min assist level. Once up, she is ambulating 170 feet front-wheeled walker, contact guard. Working on balance issues. In occupational therapy, lower body dressing is contact guard; upper body is supervision. In speech therapy, she does have mild memory deficits. ASSESSMENT: 1. Two new cerebrovascular accidents involving left thalamus and right parietal. 2. Right-sided hemiparesis. 3. Decreased balance with gait instability. 4. Acute renal insufficiency superimposed on chronic kidney disease. 5. Old left basal ganglia infarct. 6. Diabetes mellitus. 7. Premorbid history of diabetic neuropathy. 8. History of bipolar disorder. 9. History of rheumatoid arthritis. 10. Hypertension. 11. Elevated lipids. 12. Anxiety. 13. Exogenous obesity. 14. History of irritable bowel syndrome. PLAN: The overall plan of care is based on the pre-admission screen and information garnered from therapy assessments. 1. Estimated length of stay is probably around 7-10 days. 2. Medical prognosis is reasonably good. 3. Anticipated interventions includes the interdisciplinary acute inpatient rehabilitation program. 4. Anticipated functional outcomes would be for the patient to become modified independent with transfers, mobility and ADLs, so she can hopefully return back to her home setting. 5. Discharge destination [address] [address] REHAB UNIT PLAN OF CARE Name: MICHAEL VALLE Room #: 514-P [facility] IN .R.#: [id number] Admission: 02/19/21 Attend Phys: Aj Boss MD Discharge: 02/26/21 Date of : 65 Report #: [id number] would be back to the home setting where she lives in a house with her significant other/fiance and her mother. 6. Expected therapy by discipline includes PT and OT and speech 1 hour per day each 5 days a week throughout the duration of the acute inpatient rehabilitation stay. ADDENDUM: The patient's prognosis for significant practical improvement within a reasonable period of time appears good. Given the patient's complex medical condition and risk of further medical complication, rehabilitation services could not be safely provided at a lower level of care such as a snf facility. Neurology has also noted while monitoring her as she did have these strokes on the Plavix. She has had additional aspirin added. Aj Boss MD DGS <ELECTRONICALLY SIGNED> By: Aj Boss MD 03/01/21 1202 [id number] Aj Boss MD /nt
[2021-03-01] MEDS ORDERED: COZAAR 25 MG TA25 M1 PO (14:32)
== END 2021-02-26 12:08 | disposition home health service (06) | DRG 56 ==
PROVIDERS: Hospitalist; ADMIT Physical Medicine & Rehabilitation; ATTEND Physical Medicine & Rehabilitation
DX: I69.351 Hemiplegia and hemiparesis following cerebral infarction affecting right dominant side (principal); E11.641 Type 2 diabetes mellitus with hypoglycemia with coma; I63.9 Cerebral infarction, unspecified; Z68.41 Body mass index [BMI] 40.0-44.9, adult; N18.9 Chronic kidney disease, unspecified; F31.9 Bipolar disorder, unspecified; E11.22 Type 2 diabetes mellitus with diabetic chronic kidney disease; M06.9 Rheumatoid arthritis, unspecified; E11.319 Type 2 diabetes mellitus with unspecified diabetic retinopathy without macular edema; I25.10 Atherosclerotic heart disease of native coronary artery without angina pectoris; I12.9 Hypertensive chronic kidney disease with stage 1 through stage 4 chronic kidney disease, or unspecified chronic kidney disease; M79.7 Fibromyalgia; E66.01 Morbid (severe) obesity due to excess calories; E11.42 Type 2 diabetes mellitus with diabetic polyneuropathy; F43.10 Post-traumatic stress disorder, unspecified; K58.0 Irritable bowel syndrome with diarrhea; Z95.1 Presence of aortocoronary bypass graft; Z88.8 Allergy status to other drugs, medicaments and biological substances; Z79.02 Long term (current) use of antithrombotics/antiplatelets; Z79.899 Other long term (current) drug therapy
CPT/HCPCS: 10112

== ENCOUNTER 2021-05-07 13:16 | Inpatient (IN) | payer OTHER ==
[~2021-05-07] VITALS: Ht 177.8 cm; Wt 79.4 kg
[~2021-05-07 13:16] MED LIST changes: +CHLORTHALIDONE25 MG PO; +COZAAR 25 MG TA25 M1 PO; +ESCITALOPRAM OX20 MG PO; +HYDRALAZINE 2525 MG PO; +PROBIOTIC1 EAC1 PO
[2021-05-07 13:17] VITALS: BP 177/97
[2021-05-07 13:56] LABS: ABSOLUTE NEUTROPHILS 11.6 thou/uL (1.4-8.2); BASOPHILS 0.3 % (0.0-2.0); EOSINOPHILS 0.1 % (0.0-3.0); HEMATOCRIT 42.5 % (37.0-47.0); HEMOGLOBIN 14.3 gm/dL (12.0-15.0); LYMPHOCYTES 19.2 % (24.0-44.0); MCH 28.3 pg (26.0-34.0); MCHC 33.6 g/dL (28.0-37.0); MCV 84.3 fL (80.0-100.0); MONOCYTES 4.3 % (1.0-8.0); PLATELET COUNT 274 thou/uL (150-400); POLYS 76.1 % (36.0-66.0); RBC 5.05 mil/uL (4.20-5.00); RDW 15.4 % (10.5-14.5); WBC 15.3 thou/uL (4.0-11.0)
[2021-05-07 14:10] LABS: CREATININE 2.2 mg/dL (0.6-1.0); POTASSIUM 3.9 mmol/L (3.5-5.1)
[2021-05-07 14:16] LABS: ALBUMIN 4.1 g/dL (3.4-5.0); TOTAL BILIRUBIN 0.8 mg/dL (0.2-1.0); TOTAL PROTEIN 8.9 g/dL (6.4-8.2)
[2021-05-07 15:53] LABS: URINE BILIRUBIN NEGATIVE (Negative); URINE BLOOD 3+ (Negative); URINE CLARITY SL CLOUDY; URINE COLOR YELLOW; URINE GLUCOSE-RANDOM* 3+ (Negative); URINE KETONES 1+ (Negative); URINE LEUKOCYTES-REFLEX NEGATIVE (Negative); URINE NITRITE-REFLEX NEGATIVE (Negative); URINE PROTEIN (DIPSTICK) 3+ (Negative); URINE SPECIFIC GRAVITY 1.025 (1.005-1.035); URINE UROBILINOGEN 0.2 E.U./dl (0.2-1.0)
--- NOTE | 2021-05-07 16:12 | EKG ---
[place] [address] [facility] [place] [address] ELECTROCARDIOGRAM REPORT Name: PRADEEPPAVITHRAMICHAEL Room #: REG [facility]#: [id number] Admission: 05/07/21 Attend Phys: Discharge: Date of : 65 Report #: [id number] [facility] ED Test Date: 2021-05-07 Test Time: 14:05:30 Pat Name: MICHAEL VALLE Department: Room: Gender: F Napping Machine Operator: simran : 1965 Requested By: Zeynep Puente Order Number: [id number] MD: Chinedu Tyler Measurements Intervals Hope Rate: 88 P: 3 RI: 141 QRS: 3 QRSD: 94 T: 90 QT: 413 QTc: 500 Interpretive Statements Sinus rhythm Probable left atrial enlargement LVH with secondary repolarization abnormality Borderline prolonged QT interval Compared to ECG 02/18/2021 14:42:08 No significant changes Electronically Signed On 05-07-2021 16:12:02 CDT by Chinedu Tyler [email or web address] <ELECTRONICALLY SIGNED> By: Chinedu Tyler MD, [facility] 05/07/21 1612 1405 1405 Chinedu Tyler MD, FACC /EPI
[2021-05-07 16:19] LABS: SQUAMOUS 0-3 Few /LPF (0-3); URINE WBC-REFLEX 6-15 Few /HPF (0-5)
[2021-05-07 16:20] LABS: URINE RBC 3-10 Few /HPF (NONE SEEN); WBC CLUMPS Few (None Seen)
[2021-05-07 23:11] VITALS: BP 163/69
[2021-05-08 04:50] VITALS: BP 146/75
[2021-05-08 05:20] LABS: CALCIUM 8.1 mg/dL (8.5-10.1); CREATININE 1.9 mg/dL (0.6-1.0); POTASSIUM 3.1 mmol/L (3.5-5.1)
[2021-05-08 05:37] LABS: ABSOLUTE NEUTROPHILS 9.8 thou/uL (1.4-8.2); BASOPHILS 0.4 % (0.0-2.0); EOSINOPHILS 0.4 % (0.0-3.0); HEMATOCRIT 36.5 % (37.0-47.0); LYMPHOCYTES 26.2 % (24.0-44.0); MCH 28.1 pg (26.0-34.0); MCHC 32.9 g/dL (28.0-37.0); MCV 85.4 fL (80.0-100.0); MONOCYTES 8.2 % (1.0-8.0); POLYS 64.8 % (36.0-66.0); RBC 4.27 mil/uL (4.20-5.00); RDW 15.3 % (10.5-14.5); WBC 15.1 thou/uL (4.0-11.0)
[2021-05-08 05:44] LABS: PLATELET COUNT 191 thou/uL (150-400)
[2021-05-08 07:27] VITALS: BP 150/76
--- NOTE | 2021-05-08 07:28 | NUR ---
PATIENT ADMITTED TO THE UNIT FROM ER. PT AAOX4 AND IN GOOD SPIRITS. VSS. PT ADMITTED FOR NAUSEA AND VOMITING. NO WOUNDS NOTED TO PATIENT. WAS ABLE TO AMBULATE ON HER OWN FROM WHEELCHAIR TO BED. PATIENT STATES THAT SHE HAS NOT VOMITIED IN A FEW HOURS. NO S/S OF DISTRESS NOTED. WILL CONTINUE TO MONITOR.
--- NOTE | 2021-05-08 14:24 | NUR ---
TODAY THIS PT HAS HAD STABLE VS AND NO STATED PAIN FOR ME THIS SHIFT. SHE HAS HAD A POTASSIUM LEVEL OF 3.1 THIS MORNING THE PHYSICIAN WAS CONTACTED DOSE OF POTASSIUM WAS GIVEN AND HER FLUIDS CONTINUED. SHE HAS BEEN ASLEEP FOR SOME OF THE DAY AND HAS BEEN GOING TO THE BATHROOM BY HERSELF. SHE IS OTHERWISE AWAITING FOR THE NEXT PLAN.
[2021-05-08 15:56] VITALS: BP 97/46
[2021-05-08 19:45] VITALS: BP 149/64
--- NOTE | 2021-05-09 03:25 | NUR ---
PT IS A/O X4 AND IS UP AD DOT. ROOM AIR. VSS. AFEBRILE. MEDICATION GIVEN PER NOV. NO C/O N/V THIS SHIFT. VOIDS PER TOILET AND HAS NOT HAD A BM THIS SHIFT. ADVANCED DIET STARTING WITH CRACKERS THIS NOC. PT IS PLEASANT AND COOPERATIVE AND CALLS OUT APPROPRIATELY FOR ASSISTANCE. IS PROGRESSING TOWARDS PLAN OF CARE DC GOALS. WILL CONTINUE TO MONITOR.
[2021-05-09] MEDS ORDERED: ONDANSETRON HCL4 M2 PO (08:24)
--- NOTE | 2021-05-09 10:59 | NUR ---
ASSUMED CARE OF PT AT 0700 THIS MORNING. PT IS A/OX4 WITH NO COMPLAINTS. PT IS TOLERATING LIQUID DIET AND WAS ADVANCED TO CARB CONTROL FOR LUNCH. IF TOLEREATED, SHE CAN BE DISCHARGED. ASSESSMENTS NOTED IN CHART AND OTHERWISE UNREMARKABLE. MEDS AND TX GIVEN NEEDED AND SCHEDULED. CALL LIGHT AND OTHER NEEDS ARE WITHIN REACH. PT IS INDEP TO AMBULATE. WILL MONITOR AND NOTE ANY CHANGES.
[2021-05-09 12:38] VITALS: BP 139/67
== END 2021-05-09 13:30 | disposition home or self-care (01) | DRG 392 ==
LOC: ER 13:16 → EROBS 22:15 → 4S 23:11
PROVIDERS: Nurse Practitioner; Nurse Practitioner Family; ADMIT Hospitalist; ATTEND Hospitalist
DX: A08.4 Viral intestinal infection, unspecified (principal); N17.9 Acute kidney failure, unspecified; I16.0 Hypertensive urgency; Z79.899 Other long term (current) drug therapy; Z88.8 Allergy status to other drugs, medicaments and biological substances; Z90.49 Acquired absence of other specified parts of digestive tract; F41.9 Anxiety disorder, unspecified; F32.9 Major depressive disorder, single episode, unspecified; I25.10 Atherosclerotic heart disease of native coronary artery without angina pectoris; Z86.73 Personal history of transient ischemic attack (TIA), and cerebral infarction without residual deficits; E11.42 Type 2 diabetes mellitus with diabetic polyneuropathy; Z79.4 Long term (current) use of insulin; Z95.1 Presence of aortocoronary bypass graft; Z20.822 Contact with and (suspected) exposure to COVID-19
CPT/HCPCS: 10195

== ENCOUNTER 2021-07-14 15:55 | Emergency (ER) | payer OTHER ==
[~2021-07-14] VITALS: Ht 177.8 cm; Wt 115.7 kg
[~2021-07-14 15:55] MED LIST changes: +ONDANSETRON HCL4 M2 PO
[2021-07-14 16:48] LABS: URINE BILIRUBIN NEGATIVE (Negative); URINE BLOOD 1+ (Negative); URINE CLARITY CLEAR; URINE COLOR YELLOW; URINE GLUCOSE-RANDOM* 3+ (Negative); URINE KETONES NEGATIVE (Negative); URINE LEUKOCYTES-REFLEX NEGATIVE (Negative); URINE NITRITE-REFLEX NEGATIVE (Negative); URINE PROTEIN (DIPSTICK) 1+ (Negative); URINE UROBILINOGEN 0.2 E.U./dl (0.2-1.0)
[2021-07-14 17:12] LABS: BACTERIA-REFLEX 1-9 Few /HPF (None Seen); CASTS None Seen /LPF (None Seen); CRYSTALS None Seen /LPF (None Seen); SQUAMOUS 0-3 Few /LPF (0-3); URINE RBC 1-2 Rare /HPF (NONE SEEN); URINE WBC-REFLEX 6-15 Few /HPF (0-5)
[2021-07-14 17:13] LABS: YEAST-REFLEX Present (None Seen)
[2021-07-14 17:50] LABS: ABSOLUTE NEUTROPHILS 6.7 thou/uL (1.4-8.2); EOSINOPHILS 2.8 % (0.0-3.0); HEMATOCRIT 36.8 % (37.0-47.0); HEMOGLOBIN 11.9 gm/dL (12.0-15.0); LYMPHOCYTES 31.1 % (24.0-44.0); MCH 28.3 pg (26.0-34.0); MCHC 32.5 g/dL (28.0-37.0); MCV 87.3 fL (80.0-100.0); MONOCYTES 5.8 % (1.0-8.0); PLATELET COUNT 240 thou/uL (150-400); POLYS 59.3 % (36.0-66.0); RBC 4.21 mil/uL (4.20-5.00); RDW 14.3 % (10.5-14.5); WBC 11.3 thou/uL (4.0-11.0)
[2021-07-14 17:59] LABS: CREATININE 1.9 mg/dL (0.6-1.0); POTASSIUM 4.5 mmol/L (3.5-5.1)
[2021-07-14] MEDS ORDERED: MACROBID 100 M100 M1 PO (19:13)
[2021-07-14 19:15] VITALS: BP 144/78
--- NOTE | 2021-07-15 07:10 | EKG ---
[place] [address] [facility] [place] [address] ELECTROCARDIOGRAM REPORT Name: MICHAEL VALLE Room [facility]: [id number] Admission: 07/14/21 Attend Phys: Discharge: 07/14/21 Date of : 65 Report #: [id number] [facility] ED Test Date: 2021-07-14 Test Time: 16:07:46 Pat Name: MICHAEL VALLE Department: Room: Gender: F Insulation Machine Operator: : 1965 Requested By: Ashleigh Jenkins Order Number: [id number] MD: Chinedu Tyler Measurements Intervals [place] Rate: 79 P: -16 OK: 182 QRS: -1 QRSD: 80 T: 73 QT: 385 QTc: 442 Interpretive Statements Sinus rhythm Left ventricular hypertrophy Nonspecific T abnrm, anterolateral leads Compared to ECG 05/07/2021 14:05:30 Early repolarization no longer present Electronically Signed On 07-15-2021 7:10:13 CDT by Chinedu Tyler [email or web address] <ELECTRONICALLY SIGNED> By: Chinedu Tyler MD, [facility] 07/15/21 0710 1607 06 Chinedu Tyler MD, FACC /EPI
== END 2021-07-14 19:15 | disposition home or self-care (01) ==
LOC: ER 15:55
PROVIDERS: Emergency Medicine
DX: S09.90XA Unspecified injury of head, initial encounter (principal); R42 Dizziness and giddiness; N39.0 Urinary tract infection, site not specified; I10 Essential (primary) hypertension; I25.10 Atherosclerotic heart disease of native coronary artery without angina pectoris; E78.5 Hyperlipidemia, unspecified; F31.9 Bipolar disorder, unspecified; E11.40 Type 2 diabetes mellitus with diabetic neuropathy, unspecified; M06.9 Rheumatoid arthritis, unspecified; Z90.89 Acquired absence of other organs; Z98.890 Other specified postprocedural states; Z90.49 Acquired absence of other specified parts of digestive tract; Z95.1 Presence of aortocoronary bypass graft; Z79.891 Long term (current) use of opiate analgesic; Z79.1 Long term (current) use of non-steroidal anti-inflammatories (NSAID); Z79.899 Other long term (current) drug therapy; Z79.4 Long term (current) use of insulin; Z88.8 Allergy status to other drugs, medicaments and biological substances; Z88.6 Allergy status to analgesic agent; Z88.5 Allergy status to narcotic agent; W18.30XA Fall on same level, unspecified, initial encounter; Y93.89 Activity, other specified; Y92.89 Other specified places as the place of occurrence of the external cause; Y99.8 Other external cause status

== ENCOUNTER 2021-08-25 12:45 | Emergency (ER) | payer OTHER ==
[~2021-08-25] VITALS: Ht 177.8 cm; Wt 113.4 kg
[~2021-08-25 12:45] MED LIST changes: +MACROBID 100 M100 M1 PO
[2021-08-25 14:59] VITALS: BP 132/66
== END 2021-08-25 15:00 | disposition home or self-care (01) ==
LOC: ER 12:45
DX: S80.02XA Contusion of left knee, initial encounter (principal); I10 Essential (primary) hypertension; M06.9 Rheumatoid arthritis, unspecified; F41.9 Anxiety disorder, unspecified; F31.9 Bipolar disorder, unspecified; E11.40 Type 2 diabetes mellitus with diabetic neuropathy, unspecified; I25.10 Atherosclerotic heart disease of native coronary artery without angina pectoris; Z98.890 Other specified postprocedural states; Z90.89 Acquired absence of other organs; Z79.899 Other long term (current) drug therapy; Z79.891 Long term (current) use of opiate analgesic; Z79.4 Long term (current) use of insulin; Z79.1 Long term (current) use of non-steroidal anti-inflammatories (NSAID); Z88.8 Allergy status to other drugs, medicaments and biological substances; Z88.6 Allergy status to analgesic agent; W18.30XA Fall on same level, unspecified, initial encounter; Y93.89 Activity, other specified; Y92.89 Other specified places as the place of occurrence of the external cause; Y99.8 Other external cause status